=== PATIENT | female | born 1940 | race Caucasian/White ===

== ENCOUNTER 2017-06-28 10:08 | Inpatient (IN) | payer MEDICARE, MEDICAID ==
[2017-06-28 10:47] LABS: #Eosinphils 0.2 thou/uL (0.0-0.7); #Lymphocytes 0.8 thou/uL (1.20-3.40); #Monocytes 0.4 thou/uL (0.11-0.59); #Neutrophils 5.8 thou/uL (1.40-6.50); %Basophils 0.2 % (0.0-1.0); %Eosinophils 2.2 % (0.0-10.0); %Lymphocytes 11.6 % (21.0-51.0); %Monocytes 5.4 % (0.0-10.0); %Neutrophils 80.7 % (42.0-75.0); Hemoglobin 7.7 g/dL (12.0-16.0); Mean Corpuscular HGB CONC 28.7 g/dL (32.0-36.0); Mean Corpuscular Hemoglobin 20.8 pg (27.0-31.0); Mean Corpuscular Volume 72.4 fl (81.0-99.0); Mean Platelet Volume 7.5 fL (7.4-10.4); Platelet Count 206 thou/uL (130-400); RBC Distribution Width 18.9 % (11.5-14.5); Red Blood Cell (RBC) Count 3.72 mill/uL (4.20-5.40); White Blood Cell (WBC) Count 7.2 thou/uL (4.8-10.8)
[2017-06-28 10:48] LABS: Prothrombin Time 41.9 SEC (12.0-14.7)
[2017-06-28 10:49] LABS: PTT 56.7 SEC (22.9-36.1)
[2017-06-28 10:53] LABS: INR-International Normal Ratio 4.1
[2017-06-28 11:04] LABS: ALT (SGPT) 7 U/L (8-55); AST (SGOT) 11 U/L (5-34); Albumin 3.6 g/dL (3.4-4.8); Alkaline Phosphatase 69 U/L (40-150); Anion Gap 14 mmol/L (10-20); BUN (Urea Nitrogen) 13 mg/dL (9.8-20.1); Bilirubin, Total 0.5 mg/dL (0.2-1.2); CK (CPK) 30 U/L (29-168); Calc. Creatinine Clearance 0 mL/min (70-130); Carbon Dioxide 31 mmol/L (23-31); Chloride 100 mmol/L (98-107); Estimated GFR-MDRD 46; Globulin 2.5 g/dL (2.4-3.5); Glucose 152 mg/dL (83-110); Lipase 11 U/L (8-78); Potassium 4.2 mmol/L (3.5-5.1); Protein, Total 6.1 g/dL (6.0-8.3); Sodium 141 mmol/L (136-145)
[2017-06-28 11:07] LABS: Hypochromia MODERATE=16-30 cells (100X) (0-5/hpf); MDiff Complete? YES; Microcytosis MODERATE=15-30 cells (100X) (0-5/hpf); Ovalocytes MODERATE= 6-15 cells (100X) (0-1/hpf); PLT Morphology Comment Appears Adequate; Polychromasia MODERATE = 3-4 cells (100X) (0-2/hpf); Reflex for Review?? NO
[2017-06-28 11:09] LABS: CKMB 1.1 ng/mL (0-6.6); Troponin I 0.013 ng/mL (< 0.028)
--- NOTE | 2017-06-28 11:15 | RAD ---
PORTABLE CHEST ONE VIEW: Date: 06-28-17 Time: 11:02 a.m. History: Chest pain. FINDINGS/IMPRESSION: Comparison is made with exam of 03-09-17. Left sided pacemaker device remains in place. The heart size is enlarged. There is mild pulmonary vas cular congestion. No lobar consolidation, pneumothorax, saida pulmonary edema or large effusions are seen. POS: [facility]
[2017-06-28] MEDS ORDERED: Furosemide 40 MG/4 ML VIAL ONE (12:21)
[2017-06-28] MEDS ORDERED: Nitroglycerin 0.4 MG TAB (25 Tab Bottle) SL PRN (13:40)
[2017-06-28] MEDS ORDERED: Ondansetron ODT 4 MG TAB PO PRN (13:40)
[2017-06-28] MEDS ORDERED: hydrALAZINE 20 MG/ML VIAL SLOW IVP PRN (13:40)
[2017-06-28] MEDS ORDERED: Diabetic Tussin 200 MG/10 ML UDCUP PO PRN (13:40)
[2017-06-28] MEDS ORDERED: Loperamide HCl 2 MG CAP PO PRN (13:40)
[2017-06-28] MEDS ORDERED: Artificial Tears 18 DROP/0.9 ML EA EYE PRN (13:40)
[2017-06-28] MEDS ORDERED: Sodium Chloride 0.65% Nasal 44 ML BOT EA NARE PRN (13:40)
[2017-06-28] MEDS ORDERED: Mag-Al 1200 mg/1200 mg/30 ML UDCUP PO PRN (13:40)
[2017-06-28] MEDS ORDERED: Loratadine 10 MG TAB PO PRN (13:40)
[2017-06-28] MEDS ORDERED: Senokot 8.6 MG TAB PO PRN (13:40)
[2017-06-28] MEDS ORDERED: Chloraseptic Spray 180 ml Bottle PO PRN (13:40)
[2017-06-28] MEDS ORDERED: Ondansetron HCl/PF 4 MG/2 ML Vial IVP PRN (13:40)
[2017-06-28] MEDS ORDERED: Eucerin (Mineral Oil/Petrolatum,White) 30 gm Jar TOP PRN (13:40)
[2017-06-28] MEDS ORDERED: Milk Of Magnesia 30 ML UDCUP PO PRN (13:40)
[2017-06-28] MEDS ORDERED: Zolpidem Tartrate 5 MG TAB PO PRN (13:40)
[2017-06-28] MEDS ORDERED: clonazePAM 0.5 MG TAB PO PRN (13:40)
[2017-06-28 14:25] LABS: Troponin I 0.012 ng/mL (< 0.028)
--- NOTE | 2017-06-28 14:35 | HP ---
PRIMARY CARE PHYSICIAN: Rin Mccloud M.D. at [facility]. REASON FOR ADMISSION: Acute on chronic diastolic congestive heart failure exacerbation. HISTORY OF PRESENT ILLNESS: A 77-year-old female who lives at [facility]. She has under lying history of diastolic heart failure with EF 50%-55% based on echocardiography in 02/2017. The p atient also has moderate tricuspid regurgitation and moderate pulmonary hypertension. Patient is rodney Hull as an outpatient basis. Her last admission for CHF exacerbation was in 02/2017. T he patient reports that this time she had almost similar presentation and she was having chest pain a t the alf which was substernal without any radiation, without any association of nausea, vom iting, diaphoresis. For the last 2-3 weeks, she is experiencing dyspnea on exertion with orthopnea, PND, and increasing lower extremity edema. Patient denies any fever or chills, but she was having co ugh on lying down position. She was feeling more short of breath in lying down position. She also g ained some weight. With these symptoms, she was presented to the emergency room. Last night, she wa s having worse symptoms ever. She was not able to breathe along with her chest discomfort and that i s why patient was sent to the ER for further evaluation and treatment. Today in the emergency room, chest x-ray showed pulmonary vascular congestion. Her hemoglobin is 7.7 and her INR is 4.1. Her BNP is elevated to 316. In the emergency room, the patient was given Lasix 40 mg and aspirin 324 mg and patient is being admi tted to telemetry floor for acute on chronic diastolic congestive heart failure exacerbation as well as associated hypoxia and chest pain to rule out acute coronary syndrome. PAST MEDICAL HISTORY: Chronic kidney disease stage 3, coronary artery disease, history of pacemaker, COPD, paroxysmal atrial fibrillation, gastroesophageal reflux disease, chronic anticoagulation with warfarin, history of frequent urinary tract infection, chronic pain disorder, diabetes type 2, Alzhei justin's dementia, and history of breast cancer. PAST PSYCHIATRIC HISTORY: Anxiety, depression, and bipolar disorder. PAST SURGICAL HISTORY: Bilateral mastectomy, cholecystectomy, hysterectomy, bilateral total knee rep lacement, pacemaker placement, cardiac catheterization with stent placement in 2011. FAMILY HISTORY: Positive for congestive heart failure and COPD among several family members. No str garcia family history of premature coronary artery disease, stroke or cancer. SOCIAL HISTORY: Patient is a former smoker. She currently denies any tobacco, alcohol or illicit dr ug abuse. She lives at [facility]. REVIEW OF SYSTEMS: The following complete review of systems was negative, unless otherwise mentioned in the HPI or below: Constitutional: Weight loss or gain, ability to conduct usual activities. Sk in: Rash, itching. Eyes: Double vision, pain. ENT/Mouth: Nose bleeding, neck stiffness, pain, te nderness. Cardiovascular: Palpitations, dyspnea on exertion, orthopnea. Respiratory: Shortness of breath, wheezing, cough, hemoptysis, fever or night sweats. Gastrointestinal: Poor appetite, abdom inal pain, heartburn, nausea, vomiting, constipation, or diarrhea. Genitourinary: Urgency, frequenc y, dysuria, nocturia. Musculoskeletal: Pain, swelling. Neurologic/Psychiatric: Anxiety, depressio n. Allergy/Immunologic: Skin rash, bleeding tendency. Please see my HPI for pertinent positives and negatives. All other review of systems reviewed and ne gative except as mentioned in the HPI. ALLERGIES: Patient is allergic to NAPROXEN, KEFLEX and LEVAQUIN. The patient is also allergic to CO UMADIN. CURRENT HOME MEDICATIONS: Potassium chloride 20 mEq p.o. daily, oxybutynin chloride 5 mg p.o. daily, Namenda 10 mg twice daily, gabapentin 300 mg p.o. 3 times daily, Flonase nasal spray daily, Lasix 20 mg p.o. daily, risperidone 1 mg p.o. daily, clonazepam 0.5 mg p.o. daily, Zoloft 75 mg p.o. at [facility], aspirin 324 mg p.o. daily, Prilosec 20 mg p.o. daily, Xarelto 20 mg p.o. daily, multivitamin 1 ta blet p.o. daily, tramadol 50 mg q.6 hourly p.r.n., Estrace vaginal cream topical application as direc papo, Lortab 7.5 one tablet q.6 hourly p.r.n. EMERGENCY ROOM COURSE: Patient has received Lasix 40 mg IV one time dose. PHYSICAL EXAMINATION: VITAL SIGNS: On arrival, blood pressure 117/59, pulse 72, respiratory rate 23, temperature 99.1, sat uration 100% on 2 liters oxygen, weight 113.4 kilograms. GENERAL: Patient is currently alert, awake, appears chronically ill, in no obvious acute distress. HEENT: Normocephalic, atraumatic. Eyes: Pupils round, reactive to light. Extraocular muscles inta ct. ENT: Oropharynx within normal limits. Moist mucous membranes. No oral lesions. No pharyngeal eryt marcellus, no exudate. NECK: Supple, no JVD, no thyromegaly, no carotid bruit, no jugular venous distention. LUNGS: Bibasilar rales noted. Air entry reduced on both sides. No wheezing, no rhonchi. No access ory muscles of respiration in use. CARDIAC: S1, S2 regular. No murmur, no gallop, no rub. ABDOMEN: Soft, bowel sounds present, nontender, nondistended. No organomegaly, no mass, no suprapub ic tenderness. BACK: Unremarkable, no CVA tenderness. EXTREMITIES: Upper extremity passive movement of all joints are normal. Lower extremity, bilateral lower extremity pitting edema noted. Good distal pulsation. SKIN: No skin rash. HEMATOLOGICAL SYSTEM: No lymphadenopathy. PSYCHIATRIC: Normal affect. SIGNIFICANT LABORATORY DATA: EKG showing pacemaker rhythm, nonspecific ST-T changes. Chest x-ray based on my review, pacemaker in place, cardiomegaly, pulmonary vascular congestion. CBC: WBC 7.2, hemoglobin 7.7, MCV 72.4, platelets 206. INR 4.1. BMP: Sodium 141, potassium 4.2, c hloride 100, carbon dioxide 31, anion gap 14, BUN 13, creatinine 1.14, glucose 152, calcium 9.0. Lac tic acid 2.2. LFT: AST 11, AST 7, alkaline phosphatase 69, albumin 3.6, lipase 11. CK 30, CK-MB 1. 1, troponin I 0.013, BNP 316. ASSESSMENT AND PLAN: 1. Acute on chronic diastolic congestive heart failure exacerbation. This patient has increasing dy spnea, orthopnea, paroxysmal nocturnal dyspnea, leg swelling, elevated BNP and pulmonary vascular con gestion on chest x-ray, all consistent with congestive heart failure exacerbation. Based on most rec ent echocardiography on 02/2017, patient has normal ejection fraction. At this point, the patient wi ll be admitted to telemetry floor and she will be treated with IV Lasix. We will monitor daily weigh t, input and output chart, and replace electrolytes accordingly. We will monitor renal function as w ell. 2. Increasing dyspnea. We will also check influenza screen to rule out influenza. We will rule out cardiac etiology with serial cardiac enzymes. 3. Chest pain. We will do serial cardiac enzymes to rule out acute coronary syndrome. Nitroglyceri n on p.r.n. basis. 4. Acute hypoxic respiratory failure. Patient was requiring oxygen in the emergency room and she wa s hypoxic initially. We will monitor her oxygen saturation closely and we are hoping that with Lasix therapy, the patient will not need any oxygen therapy upon discharge. 5. Coagulopathy due to Xarelto. Because of her INR is 4.1, we will hold on Xarelto therapy. 6. Microcytic anemia. We will check ferritin and will repeat CBC tomorrow. We will do anemia jeanine p and we will also start ferrous sulfate 325 mg p.o. b.i.d. If ferritin is significantly low, then b efore discharge we will also consider giving iron infusion. We will check stool for guaiac to rule o ut any occult bleeding. 7. Alzheimer dementia. We will continue Namenda 10 mg twice daily. 8. Anxiety and depression. We will continue Zoloft 75 mg p.o. at bedtime and risperidone 1 mg p.o. daily. 9. Chronic anticoagulation with Xarelto. We will hold on Xarelto therapy because of high INR. We w ill repeat INR tomorrow. 10. Peripheral neuropathy. We will continue gabapentin 300 mg three times daily. 11. Hypertension. Currently, patient's blood pressure is well controlled. We are continuing with L asix and will titrate blood pressure medication as tolerated. 12. Dyslipidemia. We will continue Zetia 10 mg p.o. daily and Lipitor 20 mg p.o. at bedtime. 13. Chronic obstructive pulmonary disease. We will continue DuoNeb therapy every 6 hourly. 14. Bipolar disorder. We will continue Depakote ER 250 mg p.o. daily. 15. Deep venous thrombosis prophylaxis. SCD boots. 16. Gastrointestinal prophylaxis, Protonix 40 mg p.o. daily. 17. CODE STATUS: The patient is [id number]. The patient also has [id number] writte n at alf. I spoke with the patient and confirmed her [id number] status [facility] as well. The patient does not want even trial of cardiopulmonary resuscitation or intubation i n case of cardiopulmonary arrest. 18. Paroxysmal atrial fibrillation. We will monitor on telemetry floor, patient is on chronic antic oagulation therapy. 19. History of coronary artery disease. Continue aspirin 81 mg p.o. daily along with other medicati on as above. 20. The patient also has stage II pressure ulcer on skin examination and that is why we will provide skin care to prevent getting worse. Stage 2 pressure ulcer is present on admission. Disposition plan based on clinical course. We are expecting patient's stay in hospital more than 2 m idnights. Plan of care discussed with the patient and family member at bedside in the emergency room.
[2017-06-28 17:24] LABS: Troponin I 0.018 ng/mL (< 0.028)
[2017-06-28] MEDS: Gabapentin 300 MG CAP PO SCH ×2 (18:07→21:10)
[2017-06-28] MEDS: Furosemide 40 MG/4 ML VIAL SLOW IVP SCH (18:07)
[2017-06-28] MEDS: Acetaminophen 325 MG TAB PO PRN (19:37)
[2017-06-28] MEDS: Atorvastatin Calcium 20 MG TAB PO SCH (21:10)
[2017-06-29 05:50] LABS: INR-International Normal Ratio 2.6; PTT 47.1 SEC (22.9-36.1); Prothrombin Time 28.7 SEC (12.0-14.7)
[2017-06-29] MEDS: Furosemide 40 MG/4 ML VIAL SLOW IVP SCH ×2 (06:08→14:47)
[2017-06-29 06:13] LABS: ALT (SGPT) Less than 7 U/L (8-55); AST (SGOT) 10 U/L (5-34); Albumin 3.4 g/dL (3.4-4.8); Alkaline Phosphatase 70 U/L (40-150); Anion Gap 15 mmol/L (10-20); BUN (Urea Nitrogen) 14 mg/dL (9.8-20.1); Bilirubin, Total 0.5 mg/dL (0.2-1.2); Calc. Creatinine Clearance 60 mL/min (70-130); Calcium 9.2 mg/dL (7.8-10.44); Carbon Dioxide 29 mmol/L (23-31); Chloride 101 mmol/L (98-107); Estimated GFR-MDRD 47; Globulin 2.4 g/dL (2.4-3.5); Glucose 119 mg/dL (83-110); Magnesium 2.8 mg/dL (1.6-2.6); Protein, Total 5.8 g/dL (6.0-8.3); Sodium 141 mmol/L (136-145); Uric Acid 10.5 mg/dL (2.6-6.0)
[2017-06-29 07:18] LABS: #Basophils 0.1 thou/uL (0.0-0.2); #Eosinphils 0.1 thou/uL (0.0-0.7); #Lymphocytes 0.8 thou/uL (1.20-3.40); #Monocytes 0.4 thou/uL (0.11-0.59); #Neutrophils 4.7 thou/uL (1.40-6.50); %Basophils 1.2 % (0.0-1.0); %Eosinophils 2.4 % (0.0-10.0); %Lymphocytes 12.6 % (21.0-51.0); %Monocytes 7.3 % (0.0-10.0); %Neutrophils 76.5 % (42.0-75.0); Hemoglobin 7.4 g/dL (12.0-16.0); Mean Corpuscular HGB CONC 29.2 g/dL (32.0-36.0); Mean Corpuscular Hemoglobin 21.1 pg (27.0-31.0); Mean Corpuscular Volume 72.1 fl (81.0-99.0); Mean Platelet Volume 6.8 fL (7.4-10.4); Platelet Count 177 thou/uL (130-400); RBC Distribution Width 18.9 % (11.5-14.5); Red Blood Cell (RBC) Count 3.49 mill/uL (4.20-5.40); White Blood Cell (WBC) Count 6.1 thou/uL (4.8-10.8)
[2017-06-29 08:14] LABS: Iron 17 ug/dL (50-170); Iron Binding Capacity, Total 350 mcg/dL (265-497)
[2017-06-29 08:37] VITALS: BMI 35.3
[2017-06-29] MEDS: Ezetimibe 10 MG TAB PO SCH (09:15)
[2017-06-29] MEDS: risperiDONE 1 MG TAB PO SCH (09:16)
[2017-06-29] MEDS: Multivitamin W/ Minerals 1 TAB PO SCH (09:16)
[2017-06-29] MEDS: Gabapentin 300 MG CAP PO SCH ×4 (09:16→20:43)
[2017-06-29] MEDS: Oxybutynin ER 5 MG TAB PO SCH (09:16)
[2017-06-29] MEDS: HYDROcodone/Acetaminophen 5/325 mg Tablet PO PRN ×2 (09:17→13:21)
--- NOTE | 2017-06-29 09:59 | PDOC.PN ---
- Subjective Encounter Start Date: 06/29/17 Encounter Start Time: 07:10 -: old records requested/rev Patient seen and examined. No new complaints. No overnight events - Objective Resuscitation Status: Resuscitation Status DNR:Do Not Resuscitate MAR Reviewed: Yes Vital Signs & Weight: Vital Signs (12 hours) Temp Pulse Resp BP Pulse Ox 06/29/17 08:15 98.1 F 76 20 131/62 94 L 06/29/17 06:22 93 L 06/29/17 06:21 108 H 20 93 L 06/29/17 04:00 98.3 F 73 20 145/66 H 93 L 06/29/17 00:42 77 16 99 Weight Admit Weight 193 lb 14.4 oz Weight 193 lb 5 oz I&O: 06/28/17 06/29/17 06/30/17 06:59 06:59 06:59 Intake Total 1440 Balance 1440 Result Diagrams: 06/29/17 04:15 06/29/17 04:15 EKG Reviewed by me: Yes (nsr) Phys Exam - Physical Examination Constitutional: NAD HEENT: PERRLA, moist MMs, sclera anicteric Neck: no JVD, supple Respiratory: no wheezing, no rhonchi basal rales Cardiovascular: RRR, no significant murmur, no rub Gastrointestinal: soft, non-tender, no distention, positive bowel sounds Musculoskeletal: pulses present, edema present Neurological: non-focal, normal sensation Lymphatic: no nodes Psychiatric: normal affect, A&O x 3 Skin: no rash, normal turgor Dx/Plan (1) Acute on chronic diastolic (congestive) heart failure Code(s): I50.33 - ACUTE ON CHRONIC DIASTOLIC (CONGESTIVE) HEART FAILURE Status : Acute (2) Acute respiratory failure with hypoxia Code(s): J96.01 - ACUTE RESPIRATORY FAILURE WITH HYPOXIA Status: Acute (3) Chest pain Code(s): R07.9 - CHEST PAIN, UNSPECIFIED Status: Acute (4) Coagulopathy Status: Acute (5) Alzheimer's dementia Code(s): G30.9 - ALZHEIMER'S DISEASE, UNSPECIFIED Status: Chronic (6) Anxiety and depression Code(s): F41.8 - OTHER SPECIFIED ANXIETY DISORDERS Status: Chronic (7) Bipolar disorder Code(s): F31.9 - BIPOLAR DISORDER, UNSPECIFIED Status: Chronic (8) CAD (coronary artery disease) Code(s): I25.10 - ATHSCL HEART DISEASE OF [place] CORONARY ARTERY W/O ANG PCTRS Status: Chronic (9) CKD (chronic kidney disease) stage 3, GFR 30-59 ml/min Code(s): N18.3 - CHRONIC KIDNEY DISEASE, STAGE 3 (MODERATE) Status: Chronic (10) COPD (chronic obstructive pulmonary disease) Status: Chronic (11) Chronic pain syndrome Code(s): G89.4 - CHRONIC PAIN SYNDROME Status: Chronic (12) HTN (hypertension) Code(s): I10 - ESSENTIAL (PRIMARY) HYPERTENSION Status: Chronic (13) Microcytic anemia Code(s): D50.9 - IRON DEFICIENCY ANEMIA, UNSPECIFIED Status: Chronic (14) Obesity (BMI 30-39.9) Code(s): E66.9 - OBESITY, UNSPECIFIED Status: Chronic (15) Paroxysmal atrial fibrillation Code(s): I48.0 - PAROXYSMAL ATRIAL FIBRILLATION Status: Chronic (16) Peripheral neuropathy Code(s): G62.9 - POLYNEUROPATHY, UNSPECIFIED Status: Chronic (17) Chronic respiratory failure Code(s): J96.10 - CHRONIC RESPIRATORY FAILURE, UNSP W HYPOXIA OR HYPERCAPNIA Status: Chronic - Plan cont current plan of care * continue diuresis * medication reviewed as below * symptomatic treatment * daily monitor labs and weight * will need 2 more day in hospital. Review of Systems - Review of Systems Constitutional: negative: fever, chills, sweats, weakness, malaise, other ENT: negative: Ear Pain, Ear Discharge, Nose Pain, Nose Discharge, Nose Congestion, Mouth Pain, Mouth Swelling, Throat Pain, Throat Swelling, Other Respiratory: SOB with Excertion. negative: Cough, Dry, Shortness of Breath, Hemoptysis, Pleuritic Pain, Sputum, Wheezing Cardiovascular: orthopnea, edema Gastrointestinal: negative: Nausea, Vomiting, Abdominal Pain, Diarrhea, Constipation, Melena, Hematochezia, Other Genitourinary: negative: Dysuria, Frequency, Incontinence, Hematuria, Retention , Other Musculoskeletal: negative: Neck Pain, Shoulder Pain, Arm Pain, Back Pain, Hand Pain, Leg Pain, Foot Pain, Other Skin: negative: Rash, Lesions, Joe, Bruising, Other - Medications/Allergies Allergies/Adverse Reactions: Allergies Allergy/AdvReac Type Severity Reaction Status Date / Time levofloxacin [From Levaquin] Allergy Verified 06/28/17 19:48 naproxen Allergy Verified 06/28/17 19:48 NSAIDS (Non-Steroidal Allergy Verified 06/28/17 19:48 Anti-Inflamma warfarin sodium Allergy Verified 06/28/17 19:48 [From Coumadin] Medications: Current Medications Acetaminophen (Tylenol) 650 mg PO Q4H PRN PRN Reason: Headache/Fever or Pain Last Admin: 06/28/17 19:37 Dose: 650 mg Hydrocodone Bitart/Acetaminophen (Shields 5/325) 1 tab PO Q4H PRN PRN Reason: Moderate Pain (4-6) Last Admin: 06/29/17 09:17 Dose: 1 tab Al Hydroxide/Mg Hydroxide (Maalox) 30 ml PO Q6H PRN PRN Reason: Heartburn or Indigestion Albuterol/Ipratropium (Duoneb) 3 ml NEB [id number] [facility] Last Admin: 06/29/17 06:21 Dose: 3 ml Artificial Tears (Tears Naturale) 0 drop EA EYE PRN PRN PRN Reason: Dry Eyes Aspirin (Aspirin Chewable) 81 mg PO DAILY [facility] Last Admin: 06/29/17 09:15 Dose: 81 mg Atorvastatin Calcium (Lipitor) 20 mg PO HS [facility] Last Admin: 06/28/17 21:10 Dose: 20 mg Clonazepam (Klonopin) 0.5 mg PO BIDPRN PRN PRN Reason: Anxiety/Agitation Divalproex Sodium (Depakote Er) 250 mg PO DAILY [facility] Last Admin: 06/29/17 09:15 Dose: 250 mg Ezetimibe (Zetia) 10 mg PO DAILY [facility] Last Admin: 06/29/17 09:15 Dose: 10 mg Fluticasone Propionate (Flonase Nasal Adams) 1 gm NASAL DAILY [facility] Furosemide (Lasix) 40 mg SLOW IVP 0600,1400 [facility] Last Admin: 06/29/17 06:08 Dose: 40 mg Gabapentin (Neurontin) 300 mg PO TID [facility] Last Admin: 06/29/17 09:16 Dose: 300 mg Guaifenesin (Robitussin Sf) 200 mg PO Q4H PRN PRN Reason: Cough Hydralazine HCl (Apresoline) 10 mg SLOW IVP Q4H PRN PRN Reason: Systolic BP > 180 Iron/Minerals/Multivitamins (Theragran M) 1 tab PO DAILY [facility] Last Admin: 06/29/17 09:16 Dose: 1 tab Loperamide HCl (Imodium) 2 mg PO PRN PRN PRN Reason: Diarrhea/Loose Stools Loratadine (Claritin) 10 mg PO DAILYPRN PRN PRN Reason: Sinus Symptoms Magnesium Hydroxide (Milk Of Magnesium) 30 ml PO DAILYPRN PRN PRN Reason: Constipation Memantine (Namenda) 10 mg PO BID [facility] Last Admin: 06/29/17 09:16 Dose: 10 mg Mineral Oil/White Petrolatum (Eucerin Cream) 0 gm TOP BIDPRN PRN PRN Reason: Dry Skin Nitroglycerin (Nitrostat) 0.4 mg SL Q5MIN PRN PRN Reason: Chest Pain Ondansetron HCl (Zofran Odt) 4 mg PO Q6H PRN PRN Reason: Nausea/Vomiting Ondansetron HCl (Zofran) 4 mg IVP Q6H PRN PRN Reason: Nausea/Vomiting Oxybutynin Chloride (Ditropan Xl) 5 mg PO DAILY [facility] Last Admin: 06/29/17 09:16 Dose: 5 mg Pantoprazole Sodium (Protonix) 40 mg PO DAILY [facility] Last Admin: 06/29/17 09:16 Dose: 40 mg Phenol (Chloraseptic Adams 180 Ml Bot) 0 ml PO PRN PRN PRN Reason: Sore Throat Risperidone (Risperidone) 1 mg PO DAILY [facility] Last Admin: 06/29/17 09:16 Dose: 1 mg Senna (Senokot) 2 tab PO HSPRN PRN PRN Reason: Constipation Sertraline HCl (Zoloft) 75 mg PO DAILY [facility] Last Admin: 06/29/17 09:17 Dose: 75 mg Sodium Chloride ([place] Nasal Adams 0.65%) 0 ml EA NARE QIDPRN PRN PRN Reason: Nasal Congestion Zolpidem Tartrate (Ambien) 5 mg PO HSPRN PRN PRN Reason: Insomnia
[2017-06-29] MEDS: Fluticasone Propionate Nasal Spray 16 gm Bottle NASAL SCH (13:21)
[2017-06-29] MEDS: Acetaminophen 325 MG TAB PO PRN (14:47)
[2017-06-29] MEDS: Atorvastatin Calcium 20 MG TAB PO SCH (20:43)
[2017-06-29 21:23] LABS: Actual Bicarbonate (HCO3a) 34.2 mEq/L (22-26); Base Excess (BEa) 8.7 mEq/L (0 (+/-) 2.5); CO2 Tension 54.3 mmHg (35.0-45.0); Calcium, Ionized 1.1 mmol/L (1.12-1.30); Hematocrit-ABG 25.4 % (36.0-47.0); O2 Tension (PaO2) 67.7 mmHg (80.0-100.0); pH, Arterial 7.42 (7.35-7.45)
[2017-06-29 21:24] LABS: ALV-art Gradient 51.105 (0-20); Puncture Site LRA
[2017-06-30] MEDS: Acetaminophen 325 MG TAB PO PRN ×4 (05:26→21:06)
[2017-06-30] MEDS: Furosemide 40 MG/4 ML VIAL SLOW IVP SCH ×2 (05:26→14:22)
[2017-06-30] MEDS: Fluticasone Propionate Nasal Spray 16 gm Bottle NASAL SCH (09:31)
[2017-06-30] MEDS: Ezetimibe 10 MG TAB PO SCH (09:31)
[2017-06-30] MEDS: Gabapentin 300 MG CAP PO SCH ×3 (09:31→21:06)
[2017-06-30] MEDS: risperiDONE 1 MG TAB PO SCH (09:32)
[2017-06-30] MEDS: Multivitamin W/ Minerals 1 TAB PO SCH (09:32)
[2017-06-30] MEDS: Oxybutynin ER 5 MG TAB PO SCH (09:58)
--- NOTE | 2017-06-30 10:07 | PDOC.PN ---
- Subjective Encounter Start Date: 06/30/17 Encounter Start Time: 07:10 Patient seen and examined. No new complaints. No overnight events - Objective Resuscitation Status: Resuscitation Status DNR:Do Not Resuscitate MAR Reviewed: Yes Vital Signs & Weight: Vital Signs (12 hours) Temp Pulse Resp BP Pulse Ox 06/30/17 09:29 99.8 F H 91 20 140/69 93 L 06/30/17 07:18 93 L 06/30/17 07:14 101 H 20 93 L 06/30/17 03:04 98.3 F 75 22 H 138/67 95 06/30/17 01:29 128/58 L 06/29/17 23:56 82 16 100 Weight Admit Weight 193 lb 14.4 oz Weight 189 lb 3.2 oz I&O: 06/29/17 06/30/17 07/01/17 06:59 06:59 06:59 Intake Total 1440 840 Balance 1440 840 Result Diagrams: 06/29/17 04:15 06/29/17 04:15 EKG Reviewed by me: Yes Phys Exam - Physical Examination Constitutional: NAD HEENT: PERRLA, moist MMs, sclera anicteric Neck: no JVD, supple Respiratory: no wheezing, no rales, no rhonchi Cardiovascular: RRR, no significant murmur, no rub Gastrointestinal: soft, non-tender, no distention, positive bowel sounds Musculoskeletal: no edema, pulses present Neurological: non-focal Lymphatic: no nodes Psychiatric: normal affect Skin: no rash, normal turgor Dx/Plan (1) Acute on chronic diastolic (congestive) heart failure Code(s): I50.33 - ACUTE ON CHRONIC DIASTOLIC (CONGESTIVE) HEART FAILURE Status : Acute (2) Acute respiratory failure with hypoxia Code(s): J96.01 - ACUTE RESPIRATORY FAILURE WITH HYPOXIA Status: Acute (3) Chest pain Code(s): R07.9 - CHEST PAIN, UNSPECIFIED Status: Acute (4) Coagulopathy Status: Acute (5) Alzheimer's dementia Code(s): G30.9 - ALZHEIMER'S DISEASE, UNSPECIFIED Status: Chronic (6) Anxiety and depression Code(s): F41.8 - OTHER SPECIFIED ANXIETY DISORDERS Status: Chronic (7) Bipolar disorder Code(s): F31.9 - BIPOLAR DISORDER, UNSPECIFIED Status: Chronic (8) CAD (coronary artery disease) Code(s): I25.10 - ATHSCL HEART DISEASE OF [place] CORONARY ARTERY W/O ANG PCTRS Status: Chronic (9) CKD (chronic kidney disease) stage 3, GFR 30-59 ml/min Code(s): N18.3 - CHRONIC KIDNEY DISEASE, STAGE 3 (MODERATE) Status: Chronic (10) COPD (chronic obstructive pulmonary disease) Status: Chronic (11) Chronic pain syndrome Code(s): G89.4 - CHRONIC PAIN SYNDROME Status: Chronic (12) HTN (hypertension) Code(s): I10 - ESSENTIAL (PRIMARY) HYPERTENSION Status: Chronic (13) Microcytic anemia Code(s): D50.9 - IRON DEFICIENCY ANEMIA, UNSPECIFIED Status: Chronic (14) Obesity (BMI 30-39.9) Code(s): E66.9 - OBESITY, UNSPECIFIED Status: Chronic (15) Paroxysmal atrial fibrillation Code(s): I48.0 - PAROXYSMAL ATRIAL FIBRILLATION Status: Chronic (16) Peripheral neuropathy Code(s): G62.9 - POLYNEUROPATHY, UNSPECIFIED Status: Chronic (17) Chronic respiratory failure Code(s): J96.10 - CHRONIC RESPIRATORY FAILURE, UNSP W HYPOXIA OR HYPERCAPNIA Status: Chronic - Plan cont current plan of care * positive blood culture is contaminant * continue diuresis * medication reviewed as below * symptomatic treatment. Review of Systems - Review of Systems ENT: negative: Ear Pain, Ear Discharge, Nose Pain, Nose Discharge, Nose Congestion, Mouth Pain, Mouth Swelling, Throat Pain, Throat Swelling, Other Respiratory: negative: Cough, Dry, Shortness of Breath, Hemoptysis, SOB with Excertion, Pleuritic Pain, Sputum, Wheezing Cardiovascular: negative: chest pain, palpitations, orthopnea, paroxysmal nocturnal dyspnea, edema, light headedness, other Gastrointestinal: negative: Nausea, Vomiting, Abdominal Pain, Diarrhea, Constipation, Melena, Hematochezia, Other Genitourinary: negative: Dysuria, Frequency, Incontinence, Hematuria, Retention , Other Musculoskeletal: negative: Neck Pain, Shoulder Pain, Arm Pain, Back Pain, Hand Pain, Leg Pain, Foot Pain, Other - Medications/Allergies Allergies/Adverse Reactions: Allergies Allergy/AdvReac Type Severity Reaction Status Date / Time levofloxacin [From Levaquin] Allergy Verified 06/28/17 19:48 naproxen Allergy Verified 06/28/17 19:48 NSAIDS (Non-Steroidal Allergy Verified 06/28/17 19:48 Anti-Inflamma warfarin sodium Allergy Verified 06/28/17 19:48 [From Coumadin] Medications: Current Medications Acetaminophen (Tylenol) 650 mg PO Q4H PRN PRN Reason: Headache/Fever or Pain Last Admin: 06/30/17 09:30 Dose: 650 mg Hydrocodone Bitart/Acetaminophen ([place] 5/325) 1 tab PO Q4H PRN PRN Reason: Moderate Pain (4-6) Last Admin: 06/29/17 13:21 Dose: 1 tab Al Hydroxide/Mg Hydroxide (Maalox) 30 ml PO Q6H PRN PRN Reason: Heartburn or Indigestion Albuterol/Ipratropium (Duoneb) 3 ml NEB [id number] [facility] Last Admin: 06/30/17 07:14 Dose: 3 ml Artificial Tears (Tears Naturale) 0 drop EA EYE PRN PRN PRN Reason: Dry Eyes Aspirin (Aspirin Chewable) 81 mg PO DAILY [facility] Last Admin: 06/30/17 09:31 Dose: 81 mg Atorvastatin Calcium (Lipitor) 20 mg PO HS [facility] Last Admin: 06/29/17 20:43 Dose: 20 mg Clonazepam (Klonopin) 0.5 mg PO BIDPRN PRN PRN Reason: Anxiety/Agitation Divalproex Sodium (Depakote Er) 250 mg PO DAILY [facility] Last Admin: 06/30/17 09:58 Dose: 250 mg Ezetimibe (Zetia) 10 mg PO DAILY [facility] Last Admin: 06/30/17 09:31 Dose: 10 mg Fluticasone Propionate (Flonase Nasal [place]) 1 gm NASAL DAILY [facility] Last Admin: 06/30/17 09:31 Dose: 1 spr Furosemide (Lasix) 40 mg SLOW IVP 0600,1400 [facility] Last Admin: 06/30/17 05:26 Dose: 40 mg Gabapentin (Neurontin) 300 mg PO TID [facility] Last Admin: 06/30/17 09:31 Dose: 300 mg Guaifenesin (Robitussin Sf) 200 mg PO Q4H PRN PRN Reason: Cough Hydralazine HCl (Apresoline) 10 mg SLOW IVP Q4H PRN PRN Reason: Systolic BP > 180 Iron/Minerals/Multivitamins (Theragran M) 1 tab PO DAILY [facility] Last Admin: 06/30/17 09:32 Dose: 1 tab Loperamide HCl (Imodium) 2 mg PO PRN PRN PRN Reason: Diarrhea/Loose Stools Loratadine (Claritin) 10 mg PO DAILYPRN PRN PRN Reason: Sinus Symptoms Magnesium Hydroxide (Milk Of Magnesium) 30 ml PO DAILYPRN PRN PRN Reason: Constipation Memantine (Namenda) 10 mg PO BID [facility] Last Admin: 06/30/17 09:32 Dose: 10 mg Mineral Oil/White Petrolatum (Eucerin Cream) 0 gm TOP BIDPRN PRN PRN Reason: Dry Skin Nitroglycerin (Nitrostat) 0.4 mg SL Q5MIN PRN PRN Reason: Chest Pain Ondansetron HCl (Zofran Odt) 4 mg PO Q6H PRN PRN Reason: Nausea/Vomiting Ondansetron HCl (Zofran) 4 mg IVP Q6H PRN PRN Reason: Nausea/Vomiting Oxybutynin Chloride (Ditropan Xl) 5 mg PO DAILY [facility] Last Admin: 06/30/17 09:58 Dose: 5 mg Pantoprazole Sodium (Protonix) 40 mg PO DAILY [facility] Last Admin: 06/30/17 09:32 Dose: 40 mg Phenol (Chloraseptic [place] 180 Ml Bot) 0 ml PO PRN PRN PRN Reason: Sore Throat Risperidone (Risperidone) 1 mg PO DAILY [facility] Last Admin: 06/30/17 09:32 Dose: 1 mg Senna (Senokot) 2 tab PO HSPRN PRN PRN Reason: Constipation Sertraline HCl (Zoloft) 75 mg PO DAILY [facility] Last Admin: 06/30/17 09:32 Dose: 75 mg Sodium Chloride ([place] Nasal [place] 0.65%) 0 ml EA NARE QIDPRN PRN PRN Reason: Nasal Congestion Zolpidem Tartrate (Ambien) 5 mg PO HSPRN PRN PRN Reason: Insomnia
[2017-06-30] MEDS: Atorvastatin Calcium 20 MG TAB PO SCH (21:06)
[2017-07-01] MEDS: Furosemide 40 MG/4 ML VIAL SLOW IVP SCH ×2 (06:27→14:28)
[2017-07-01] MEDS: Gabapentin 300 MG CAP PO SCH ×3 (08:41→19:28)
[2017-07-01] MEDS: Acetaminophen 325 MG TAB PO PRN ×4 (08:41→23:29)
[2017-07-01] MEDS: Ezetimibe 10 MG TAB PO SCH (08:41)
[2017-07-01] MEDS: risperiDONE 1 MG TAB PO SCH (08:42)
[2017-07-01] MEDS: Multivitamin W/ Minerals 1 TAB PO SCH (08:42)
[2017-07-01] MEDS: Fluticasone Propionate Nasal Spray 16 gm Bottle NASAL SCH (10:00)
[2017-07-01] MEDS: Rivaroxaban 10 MG TAB PO SCH (10:00)
[2017-07-01] MEDS: Oxybutynin ER 5 MG TAB PO SCH (10:02)
--- NOTE | 2017-07-01 10:31 | PDOC.PN ---
- Subjective Encounter Start Date: 07/01/17 Encounter Start Time: 09:00 Patient seen and examined. SOB on exertion. No overnight events - Objective Resuscitation Status: Resuscitation Status DNR:Do Not Resuscitate MAR Reviewed: Yes Vital Signs & Weight: Vital Signs (12 hours) Temp Pulse Resp BP Pulse Ox 07/01/17 08:31 99.3 F 92 18 170/72 H 95 07/01/17 08:13 98 07/01/17 08:11 84 20 98 07/01/17 04:00 98.1 F 69 20 137/65 96 07/01/17 00:04 81 18 98 07/01/17 00:00 98.5 F 89 20 147/65 H 96 Weight Admit Weight 193 lb 14.4 oz Weight 190 lb 3.2 oz I&O: 06/30/17 07/01/17 07/02/17 06:59 06:59 06:59 Intake Total 840 1320 Balance 840 1320 Result Diagrams: 06/29/17 04:15 06/29/17 04:15 EKG Reviewed by me: Yes (Tele paced) Phys Exam - Physical Examination Constitutional: NAD Respiratory: no wheezing, no rhonchi Cardiovascular: RRR, no rub Gastrointestinal: soft, non-tender, positive bowel sounds Musculoskeletal: edema present Neurological: moves all 4 limbs Dx/Plan - Plan IMPRESSION: 1. Acute hypoxic respiratory failure due to acute on Chronic diastolic heart failure 2. CAD s/p stents 3. Chronic Afib - on anticoag 4. Anxiety/Depression 5. SSS s/p pacemaker 6. Obesity BMI 34.8/CKD 3/Dementia/Chronic Anemia PLAN: * Resume Xarelto * Cont diuresis with 1500 fluid restriction * Only lost 3 lbs so far * Cont to monitor * [place] for accurate I/O * Cont to monitor * AM labs * Restart Cardizem at low dose (Pt takes 120 mg daily) * DC Risperidone/Zoloft/Clonazepam (Not in home med list) Review of Systems - Review of Systems Cardiovascular: edema. negative: chest pain, palpitations, orthopnea, paroxysmal nocturnal dyspnea, light headedness Gastrointestinal: negative: Nausea, Vomiting, Abdominal Pain, Diarrhea, Constipation, Melena, Hematochezia - Medications/Allergies Allergies/Adverse Reactions: Allergies Allergy/AdvReac Type Severity Reaction Status Date / Time levofloxacin [From Levaquin] Allergy Verified 06/28/17 19:48 naproxen Allergy Verified 06/28/17 19:48 NSAIDS (Non-Steroidal Allergy Verified 06/28/17 19:48 Anti-Inflamma warfarin sodium Allergy Verified 06/28/17 19:48 [From Coumadin] Medications: Current Medications Acetaminophen (Tylenol) 650 mg PO Q4H PRN PRN Reason: Headache/Fever or Pain Last Admin: 07/01/17 08:41 Dose: 650 mg Hydrocodone Bitart/Acetaminophen ([place] 5/325) 1 tab PO Q4H PRN PRN Reason: Moderate Pain (4-6) Last Admin: 06/29/17 13:21 Dose: 1 tab Al Hydroxide/Mg Hydroxide (Maalox) 30 ml PO Q6H PRN PRN Reason: Heartburn or Indigestion Albuterol/Ipratropium (Duoneb) 3 ml NEB [id number] [facility] Last Admin: 07/01/17 08:11 Dose: 3 ml Artificial Tears (Tears Naturale) 0 drop EA EYE PRN PRN PRN Reason: Dry Eyes Aspirin (Aspirin Chewable) 81 mg PO DAILY [facility] Last Admin: 07/01/17 08:40 Dose: 81 mg Atorvastatin Calcium (Lipitor) 20 mg PO HS [facility] Last Admin: 06/30/17 21:06 Dose: 20 mg Clonazepam (Klonopin) 0.5 mg PO BIDPRN PRN PRN Reason: Anxiety/Agitation Divalproex Sodium (Depakote Er) 250 mg PO DAILY [facility] Last Admin: 07/01/17 10:01 Dose: 250 mg Ezetimibe (Zetia) 10 mg PO DAILY [facility] Last Admin: 07/01/17 08:41 Dose: 10 mg Fluticasone Propionate (Flonase Nasal [place]) 1 gm NASAL DAILY [facility] Last Admin: 07/01/17 10:00 Dose: Not Given Furosemide (Lasix) 40 mg SLOW IVP 0600,1400 [facility] Last Admin: 07/01/17 06:27 Dose: 40 mg Gabapentin (Neurontin) 300 mg PO TID [facility] Last Admin: 07/01/17 08:41 Dose: 300 mg Guaifenesin (Robitussin Sf) 200 mg PO Q4H PRN PRN Reason: Cough Hydralazine HCl (Apresoline) 10 mg SLOW IVP Q4H PRN PRN Reason: Systolic BP > 180 Iron/Minerals/Multivitamins (Theragran M) 1 tab PO DAILY [facility] Last Admin: 07/01/17 08:42 Dose: 1 tab Loperamide HCl (Imodium) 2 mg PO PRN PRN PRN Reason: Diarrhea/Loose Stools Loratadine (Claritin) 10 mg PO DAILYPRN PRN PRN Reason: Sinus Symptoms Magnesium Hydroxide (Milk Of Magnesium) 30 ml PO DAILYPRN PRN PRN Reason: Constipation Memantine (Namenda) 10 mg PO BID [facility] Last Admin: 07/01/17 08:41 Dose: 10 mg Mineral Oil/White Petrolatum (Eucerin Cream) 0 gm TOP BIDPRN PRN PRN Reason: Dry Skin Nitroglycerin (Nitrostat) 0.4 mg SL Q5MIN PRN PRN Reason: Chest Pain Nystatin (Mycostatin Powder) 0 gm TOP BID [facility] Ondansetron HCl (Zofran Odt) 4 mg PO Q6H PRN PRN Reason: Nausea/Vomiting Ondansetron HCl (Zofran) 4 mg IVP Q6H PRN PRN Reason: Nausea/Vomiting Oxybutynin Chloride (Ditropan Xl) 5 mg PO DAILY [facility] Last Admin: 07/01/17 10:02 Dose: 5 mg Pantoprazole Sodium (Protonix) 40 mg PO DAILY [facility] Last Admin: 07/01/17 08:42 Dose: 40 mg Phenol (Chloraseptic [place] 180 Ml Bot) 0 ml PO PRN PRN PRN Reason: Sore Throat Risperidone (Risperidone) 1 mg PO DAILY [facility] Last Admin: 07/01/17 08:42 Dose: 1 mg Rivaroxaban (Xarelto) 20 mg PO DAILY [facility] Last Admin: 07/01/17 10:00 Dose: 20 mg Senna (Senokot) 2 tab PO HSPRN PRN PRN Reason: Constipation Sertraline HCl (Zoloft) 75 mg PO DAILY [facility] Last Admin: 07/01/17 08:41 Dose: 75 mg Sodium Chloride ([place] Nasal [place] 0.65%) 0 ml EA NARE QIDPRN PRN PRN Reason: Nasal Congestion Zolpidem Tartrate (Ambien) 5 mg PO HSPRN PRN PRN Reason: Insomnia
[2017-07-01] MEDS: Nystatin Powder 15 GM BOT TOP SCH (19:29)
[2017-07-01] MEDS: Atorvastatin Calcium 20 MG TAB PO SCH (19:29)
[2017-07-01] MEDS: HYDROcodone/Acetaminophen 5/325 mg Tablet PO PRN (20:15)
[2017-07-01 22:43] LABS: Hemoglobin 8.2 g/dL (12.0-16.0); Platelet Count 245 thou/uL (130-400)
[2017-07-02] MEDS: Furosemide 40 MG/4 ML VIAL SLOW IVP SCH ×2 (05:11→14:14)
[2017-07-02 06:15] LABS: #Eosinphils 0.2 thou/uL (0.0-0.7); #Lymphocytes 1.4 thou/uL (1.20-3.40); #Monocytes 0.8 thou/uL (0.11-0.59); #Neutrophils 5.4 thou/uL (1.40-6.50); %Basophils 0.4 % (0.0-1.0); %Eosinophils 3.1 % (0.0-10.0); %Lymphocytes 18.2 % (21.0-51.0); %Monocytes 9.9 % (0.0-10.0); %Neutrophils 68.5 % (42.0-75.0); Hemoglobin 8.4 g/dL (12.0-16.0); Hypochromia SLIGHT = 6-15 cells (100X) (0-5/hpf); MDiff Complete? YES; Mean Corpuscular HGB CONC 29.5 g/dL (32.0-36.0); Mean Corpuscular Hemoglobin 21.1 pg (27.0-31.0); Mean Corpuscular Volume 71.4 fl (81.0-99.0); Mean Platelet Volume 8.7 fL (7.4-10.4); Microcytosis SLIGHT = 6-15 cells (100X) (0-5/hpf); Platelet Count 258 thou/uL (130-400); RBC Distribution Width 19.3 % (11.5-14.5); Red Blood Cell (RBC) Count 4.01 mill/uL (4.20-5.40); White Blood Cell (WBC) Count 7.8 thou/uL (4.8-10.8)
[2017-07-02 06:16] LABS: Albumin 3.7 g/dL (3.4-4.8); Anion Gap 16 mmol/L (10-20); BUN (Urea Nitrogen) 23 mg/dL (9.8-20.1); BUN/Creatinine Ratio 17.42; Calc. Creatinine Clearance 50 mL/min (70-130); Calcium 8.9 mg/dL (7.8-10.44); Carbon Dioxide 30 mmol/L (23-31); Chloride 100 mmol/L (98-107); Estimated GFR-MDRD 39; Glucose 123 mg/dL (83-110); Magnesium 2.3 mg/dL (1.6-2.6); Potassium 3.1 mmol/L (3.5-5.1); Sodium 143 mmol/L (136-145)
[2017-07-02] MEDS: HYDROcodone/Acetaminophen 5/325 mg Tablet PO PRN ×3 (09:22→20:10)
[2017-07-02] MEDS: Ezetimibe 10 MG TAB PO SCH (09:24)
[2017-07-02] MEDS: Gabapentin 300 MG CAP PO SCH ×3 (09:24→20:10)
[2017-07-02] MEDS: Multivitamin W/ Minerals 1 TAB PO SCH (09:25)
[2017-07-02] MEDS: Fluticasone Propionate Nasal Spray 16 gm Bottle NASAL SCH (09:25)
[2017-07-02] MEDS: Nystatin Powder 15 GM BOT TOP SCH ×2 (09:25→20:11)
[2017-07-02] MEDS: Rivaroxaban 10 MG TAB PO SCH (09:25)
--- NOTE | 2017-07-02 14:13 | PDOC.PN ---
- Subjective Encounter Start Date: 07/02/17 Encounter Start Time: 14:12 Patient seen at bedside. No overnight events, still getting dyspneic on exertion , no chest pain. - Objective Resuscitation Status: Resuscitation Status DNR:Do Not Resuscitate MAR Reviewed: Yes Vital Signs & Weight: Vital Signs (12 hours) Temp Pulse Pulse Pulse Pulse Resp BP 07/02/17 12:18 99.0 F 88 16 07/02/17 11:50 89 80 75 128/58 L 07/02/17 09:12 98.8 F 89 16 07/02/17 07:53 07/02/17 07:50 78 24 H 07/02/17 04:00 98.3 F 76 18 BP BP BP Pulse Ox 07/02/17 12:18 141/86 H 93 L 07/02/17 11:50 193/79 H 166/70 H 07/02/17 09:12 182/73 H 95 07/02/17 07:53 100 07/02/17 07:50 100 07/02/17 04:00 123/57 L 100 Weight Admit Weight 193 lb 14.4 oz Weight 188 lb I&O: 07/01/17 07/02/17 07/03/17 06:59 06:59 06:59 Intake Total 1320 1080 Output Total 675 Balance 1320 405 Result Diagrams: 07/02/17 03:57 07/02/17 03:57 Phys Exam - Physical Examination Constitutional: NAD HEENT: moist MMs Neck: no JVD rales B/L Cardiovascular: RRR Gastrointestinal: soft Musculoskeletal: pulses present Neurological: moves all 4 limbs Psychiatric: A&O x 3 Dx/Plan (1) Acute on chronic diastolic (congestive) heart failure Code(s): I50.33 - ACUTE ON CHRONIC DIASTOLIC (CONGESTIVE) HEART FAILURE Status : Acute (2) Acute respiratory failure with hypoxia Code(s): J96.01 - ACUTE RESPIRATORY FAILURE WITH HYPOXIA Status: Acute (3) Coagulopathy Status: Resolved (4) HTN (hypertension) Code(s): I10 - ESSENTIAL (PRIMARY) HYPERTENSION Status: Chronic - Plan cont current plan of care, respiratory therapy, DVT proph w/SCDs * Continue with IV diuresis. * Supplemental 02 * Replete K+ * ASA/Xarelto * Cardizem for rate control * CMET in AM * OOB as tolerates
[2017-07-02] MEDS ORDERED: Potassium Chloride 20 MEQ TAB PO SCH (14:30)
[2017-07-02] MEDS: Atorvastatin Calcium 20 MG TAB PO SCH (20:10)
[2017-07-03 05:07] LABS: #Eosinphils 0.3 thou/uL (0.0-0.7); #Lymphocytes 1.4 thou/uL (1.20-3.40); #Monocytes 0.8 thou/uL (0.11-0.59); %Basophils 0.2 % (0.0-1.0); %Eosinophils 4.2 % (0.0-10.0); %Lymphocytes 18.8 % (21.0-51.0); %Monocytes 10.7 % (0.0-10.0); %Neutrophils 66.1 % (42.0-75.0); Hemoglobin 8.5 g/dL (12.0-16.0); Mean Corpuscular HGB CONC 28.4 g/dL (32.0-36.0); Mean Corpuscular Hemoglobin 20.6 pg (27.0-31.0); Mean Corpuscular Volume 72.4 fl (81.0-99.0); Mean Platelet Volume 11.4 fL (7.4-10.4); Platelet Count 258 thou/uL (130-400); RBC Distribution Width 19.1 % (11.5-14.5); Red Blood Cell (RBC) Count 4.15 mill/uL (4.20-5.40); White Blood Cell (WBC) Count 7.5 thou/uL (4.8-10.8)
[2017-07-03] MEDS: Furosemide 40 MG/4 ML VIAL SLOW IVP SCH ×2 (05:20→13:47)
[2017-07-03 05:33] LABS: ALT (SGPT) 9 U/L (8-55); AST (SGOT) 20 U/L (5-34); Albumin 3.6 g/dL (3.4-4.8); Alkaline Phosphatase 66 U/L (40-150); Anion Gap 16 mmol/L (10-20); BUN (Urea Nitrogen) 31 mg/dL (9.8-20.1); BUN/Creatinine Ratio 22.14; Bilirubin, Total 0.5 mg/dL (0.2-1.2); Calc. Creatinine Clearance 47 mL/min (70-130); Calcium 9.2 mg/dL (7.8-10.44); Carbon Dioxide 29 mmol/L (23-31); Chloride 103 mmol/L (98-107); Estimated GFR-MDRD 37; Globulin 2.5 g/dL (2.4-3.5); Glucose 133 mg/dL (83-110); Magnesium 2.5 mg/dL (1.6-2.6); Phosphorus 5.1 mg/dL (2.3-4.7); Potassium 3.6 mmol/L (3.5-5.1); Protein, Total 6.1 g/dL (6.0-8.3); Sodium 144 mmol/L (136-145)
[2017-07-03] MEDS: Multivitamin W/ Minerals 1 TAB PO SCH (09:37)
[2017-07-03] MEDS: Ezetimibe 10 MG TAB PO SCH (09:37)
[2017-07-03] MEDS: Gabapentin 300 MG CAP PO SCH ×2 (09:37→14:24)
[2017-07-03] MEDS: Rivaroxaban 10 MG TAB PO SCH (09:37)
[2017-07-03] MEDS: HYDROcodone/Acetaminophen 5/325 mg Tablet PO PRN ×2 (09:38→15:15)
[2017-07-03] MEDS: Nystatin Powder 15 GM BOT TOP SCH (11:53)
[2017-07-03] MEDS: Fluticasone Propionate Nasal Spray 16 gm Bottle NASAL SCH (11:53)
[2017-07-03] MEDS ORDERED: Potassium Chloride 20 MEQ TAB PO SCH (13:30)
--- NOTE | 2017-07-03 14:25 | DIS ---
DATE OF ADMISSION: 06/28/2017 DATE OF DISCHARGE: 07/03/2017 DISCHARGE DISPOSITION: Magnified intermediate. Patient to follow up with Dr. Mccloud. The patient was seen and examined on the day of discharge. Denies any new complaints. No chest pain , shortness of breath, palpitations. Symptomatically feels much better. Requesting to be discharged . BRIEF HOSPITAL COURSE: The patient is a 77-year-old female with coronary artery disease, chronic atr ial fibrillation on anticoagulation, and chronic diastolic heart failure, who presented to the [facility] on 06/[facility]2017 with shortness of breath. Please refer to the history and physical dated 06/28/[address] Goss for further details. The patient was admitted to the telemetry unit with a diagnosis of congestive heart failure exacerbat ion. She was started on IV diuretics with slow response. Her weight on the day of discharge is 188 pounds from 193 pounds on admission. Her creatinine on the day of discharge is 1.40 compared to 1.14 on admission. We will change the Lasix to oral. The patient has been extensively counseled on hear t failure. Fluid restriction was emphasized. Patient stated understanding. FINAL DIAGNOSES: 1. Acute on chronic diastolic heart failure exacerbation. 2. Acute hypoxic respiratory failure. 3. Coronary artery disease, status post stent. 4. Chronic atrial fibrillation on anticoagulation. 5. Anxiety and depression. 6. Sick sinus syndrome, status post pacemaker. 7. Obesity with body mass index 34.8. 8. Chronic kidney disease stage 3. 9. Dementia. 10. Chronic anemia. 11. Sick sinus syndrome, status post pacemaker. 12. Overactive bladder. 13. Peripheral neuropathy. 14. Chronic anemia. Plan of care was discussed with the patient in detail. She stated understanding. Total time coordinating the discharge of this patient was 36 minutes.
[2017-07-03 15:35] VITALS: BP 122/56; TEMP 98.1
--- NOTE | 2017-07-22 15:14 | EKG ---
Test Reason : CP Blood Pressure : / mmHG Vent. Rate : 084 BPM Atrial Rate : 090 BPM P-R Int : 000 ms QRS Dur : 076 ms QT Int : 384 ms P-R-T Axes : 000 059 -71 degrees QTc Int : 453 ms Demand pacemaker; interpretation is based on intrinsic rhythm Atrial fibrillation with premature ventricular or aberrantly conducted complexes Low voltage QRS Abnormal ECG Confirmed by ALEKSANDER SUTTON, ANA ROSA ([id number]), graphics editor NENA MOREAU ([id number]) on 07/22/2017 3:14:05 PM Referred By: Confirmed By:ANA ROSA ARMIJO MD
== END 2017-07-03 15:45 | DRG 291 ==
LOC: ERS 10:08 → ERHOLD 11:56 → 2NO 16:52
PROVIDERS: ADMIT Internal Medicine; ATTEND Internal Medicine
DX: I13.0 Hypertensive heart and chronic kidney disease with heart failure and stage 1 through stage 4 chronic kidney disease, or unspecified chronic kidney disease (principal); I50.33 Acute on chronic diastolic (congestive) heart failure; J96.01 Acute respiratory failure with hypoxia; L89.151 Pressure ulcer of sacral region, stage 1; E11.42 Type 2 diabetes mellitus with diabetic polyneuropathy; E11.22 Type 2 diabetes mellitus with diabetic chronic kidney disease; D68.9 Coagulation defect, unspecified; I48.0 Paroxysmal atrial fibrillation; L89.612 Pressure ulcer of right heel, stage 2; D50.9 Iron deficiency anemia, unspecified; E66.9 Obesity, unspecified; E78.5 Hyperlipidemia, unspecified; F31.9 Bipolar disorder, unspecified; G30.9 Alzheimer's disease, unspecified; F02.80 Dementia in other diseases classified elsewhere, unspecified severity, without behavioral disturbance, psychotic disturbance, mood disturbance, and anxiety; F41.8 Other specified anxiety disorders; N18.3 Chronic kidney disease, stage 3 (moderate); K21.9 Gastro-esophageal reflux disease without esophagitis; Z85.3 Personal history of malignant neoplasm of breast; Z87.891 Personal history of nicotine dependence; Z66 Do not resuscitate; J44.9 Chronic obstructive pulmonary disease, unspecified; Z95.0 Presence of cardiac pacemaker; Z95.5 Presence of coronary angioplasty implant and graft; I25.10 Atherosclerotic heart disease of native coronary artery without angina pectoris; Z68.34 Body mass index [BMI] 34.0-34.9, adult; N32.81 Overactive bladder; G89.4 Chronic pain syndrome
CPT/HCPCS: 36415; 51702; 71045; 80053; 80069; 82550; 82553; 82565; 82728; 82805; 83540; 83550; 83605; 83690; 83735; 83880; 84484; 84550; 85014; 85018; 85025; 85049; 85610; 85730; 87040; 87149; 87804; 93005; 93798; 94640; 96374; G8978-GP-CK; G8979-GP-CJ; J1940; J7620

== ENCOUNTER 2017-08-25 13:16 | Emergency (ER) | payer MEDICARE, MEDICAID ==
[2017-08-25 14:17] LABS: ALT (SGPT) 7 U/L (8-55); AST (SGOT) 16 U/L (5-34); Albumin 3.8 g/dL (3.4-4.8); Alkaline Phosphatase 70 U/L (40-150); Anion Gap 13 mmol/L (10-20); BUN (Urea Nitrogen) 14 mg/dL (9.8-20.1); Bilirubin, Total 0.6 mg/dL (0.2-1.2); Calc. Creatinine Clearance 0 mL/min (70-130); Calcium 9.2 mg/dL (7.8-10.44); Carbon Dioxide 33 mmol/L (23-31); Chloride 100 mmol/L (98-107); Estimated GFR-MDRD 45; Globulin 2.2 g/dL (2.4-3.5); Glucose 146 mg/dL (83-110); Sodium 142 mmol/L (136-145)
--- NOTE | 2017-08-25 14:19 | RAD ---
PORTABLE CHEST 1 VIEW: Date: 08/25/17 Time: 1343 hours HISTORY: Chest pain, fall. FINDINGS: Comparison made with exam of 06/28/17. Left-sided pacemaker device remains in place. The heart is enlarged. No lobar consolidation, pneumoth oraces, saida pulmonary edema, or large effusions are seen. IMPRESSION: Stable exam. No acute process. POS: OFF
[2017-08-25 14:21] LABS: CKMB 1.4 ng/mL (0-6.6); Troponin I 0.017 ng/mL (< 0.028)
[2017-08-25 14:56] LABS: Bilirubin Negative (Negative); Blood, Urine Trace (Negative); Clarity CLEAR (Clear); Glucose, Urine (Dipstick) Negative (Negative); Leukocyte Moderate (Negative); Nitrite Positive (Negative); Protein, Urine (Dipstick) Negative (Neg-Trace); Specific Gravity, Urine 1.009 (1.002-1.036); pH, Urine 7.5 (5.0-9.0)
[2017-08-25 14:57] LABS: #Eosinphils 0.1 thou/uL (0.0-0.7); #Lymphocytes 0.6 thou/uL (1.20-3.40); #Monocytes 0.3 thou/uL (0.11-0.59); #Neutrophils 2.1 thou/uL (1.40-6.50); %Basophils 0.2 % (0.0-1.0); %Eosinophils 4.5 % (0.0-10.0); %Lymphocytes 19.8 % (21.0-51.0); %Monocytes 10.6 % (0.0-10.0); %Neutrophils 64.9 % (42.0-75.0); Hemoglobin 11.9 g/dL (12.0-16.0); Mean Corpuscular HGB CONC 31.3 g/dL (32.0-36.0); Mean Corpuscular Hemoglobin 26.6 pg (27.0-31.0); Mean Corpuscular Volume 85.1 fl (81.0-99.0); Mean Platelet Volume 10.9 fL (7.4-10.4); Platelet Count 170 thou/uL (130-400); RBC Distribution Width 22.7 % (11.5-14.5); Red Blood Cell (RBC) Count 4.48 mill/uL (4.20-5.40); White Blood Cell (WBC) Count 3.2 thou/uL (4.8-10.8)
[2017-08-25 15:00] LABS: Bacteria/HPF 4+ HPF (None Seen); Hyaline Casts/LPF 0-3 HYALINE CAST LPF (0-3 Hyaline); RBC/HPF 0-3 HPF (0-3); Squamous Epithelial None Seen HPF (0-3)
== END 2017-08-25 17:00 | disposition home or self-care (01) ==
LOC: ERS 13:16
DX: N39.0 Urinary tract infection, site not specified (principal); R07.9 Chest pain, unspecified; I10 Essential (primary) hypertension; J44.9 Chronic obstructive pulmonary disease, unspecified; I25.2 Old myocardial infarction; F41.9 Anxiety disorder, unspecified; F32.9 Major depressive disorder, single episode, unspecified; Z79.899 Other long term (current) drug therapy; Z79.82 Long term (current) use of aspirin; W19.XXXA Unspecified fall, initial encounter
CPT/HCPCS: 36415; 51701; 71045; 80053; 80164; 81003; 81015; 82553; 83880; 84484; 85025; 87077; 87086; 87186; 93005; 94760; A4353

== ENCOUNTER 2017-09-13 06:25 | Inpatient (IN) | payer MEDICARE, MEDICAID ==
[2017-09-13 07:07] LABS: #Lymphocytes 0.8 thou/uL (1.20-3.40); %Eosinophils 0.2 % (0.0-10.0); %Lymphocytes 5.6 % (21.0-51.0); %Monocytes 7.3 % (0.0-10.0); %Neutrophils 86.9 % (42.0-75.0); Hemoglobin 13.8 g/dL (12.0-16.0); Mean Corpuscular HGB CONC 31.4 g/dL (32.0-36.0); Mean Corpuscular Hemoglobin 27.5 pg (27.0-31.0); Mean Corpuscular Volume 87.5 fl (81.0-99.0); Mean Platelet Volume 6.8 fL (7.4-10.4); Platelet Count 141 thou/uL (130-400); RBC Distribution Width 18.7 % (11.5-14.5); Red Blood Cell (RBC) Count 5.02 mill/uL (4.20-5.40); White Blood Cell (WBC) Count 13.8 thou/uL (4.8-10.8)
[2017-09-13 07:22] LABS: INR-International Normal Ratio 3.3; PTT 48.4 SEC (22.9-36.1); Prothrombin Time 35.3 SEC (12.0-14.7)
[2017-09-13 07:25] LABS: ALT (SGPT) 8 U/L (8-55); AST (SGOT) 13 U/L (5-34); Albumin 3.6 g/dL (3.4-4.8); Alkaline Phosphatase 71 U/L (40-150); Anion Gap 15 mmol/L (10-20); BUN (Urea Nitrogen) 18 mg/dL (9.8-20.1); Bilirubin, Total 0.8 mg/dL (0.2-1.2); CK (CPK) 16 U/L (29-168); Calc. Creatinine Clearance 0 mL/min (70-130); Calcium 9.1 mg/dL (7.8-10.44); Carbon Dioxide 31 mmol/L (23-31); Chloride 100 mmol/L (98-107); Estimated GFR-MDRD 43; Globulin 2.4 g/dL (2.4-3.5); Glucose 195 mg/dL (83-110); Potassium 4.5 mmol/L (3.5-5.1); Sodium 141 mmol/L (136-145)
[2017-09-13 07:27] LABS: Magnesium 1.9 mg/dL (1.6-2.6)
[2017-09-13 07:29] LABS: CKMB 0.4 ng/mL (0-6.6)
[2017-09-13] MEDS ORDERED: Acetaminophen 325 MG Suppository ONE (07:53)
[2017-09-13] MEDS ORDERED: Acetaminophen 650 MG Suppository ONE (07:53)
--- NOTE | 2017-09-13 08:26 | RAD ---
FRONTAL VIEW CHEST: INDICATIONS: Cough. Altered mental status. COMPARISON: 07/28/2017 FINDINGS: The cardiac silhouette remains enlarged. This obscures the left lung base. There is bilateral vascu lar congestion and evidence of pulmonary edema. No additional significant interval change. IMPRESSION: Decompensated congestive heart failure. Continued followup is recommended. POS: [facility]
[2017-09-13] MEDS ORDERED: Vancomycin HCl 1.5 GM in Sodium Chloride 0.9% 250 ML 300 ML IVPB SCH (09:45)
[2017-09-13] MEDS ORDERED: Piperacillin/Tazobactam 4.5 GM in Sodium Chloride 0.9% 100 ML IVPB SCH (09:45)
[2017-09-13 09:51] LABS: Bilirubin Small (Negative); Blood, Urine Large (Negative); Clarity TURBID (Clear); Glucose, Urine (Dipstick) Negative (Negative); Leukocyte Large (Negative); Nitrite Negative (Negative); Protein, Urine (Dipstick) 100 mg/dL (Neg-Trace); Specific Gravity, Urine 1.021 (1.002-1.036)
[2017-09-13 09:53] LABS: Bacteria/HPF 4+ HPF (None Seen)
--- NOTE | 2017-09-13 09:58 | CT ---
NONCONTRAST HEAD CT: Comparison: 04-17-12 History: Altered mental status. FINDINGS: Slightly limited evaluation due to motion degradation. No parenchymal hemorrhage. No extraaxial hemat kaia. No midline shift. Basilar cisterns are patent. Age appropriate atrophy. Cortical deal white kendall er differentiation preserved. Ventricles and sulci are patent and symmetric. Chronic small vessel ischemic change white matter identified. Calvarium is intact. Adequate aeration of the sinuses and mastoid air cells. Stable pleural based dural based calcification along the left middle cranial fossa suggesting a calci fied meningioma. IMPRESSION: No acute intracranial process. POS: [facility]
[2017-09-13 10:04] LABS: Pathc Cast-AUWi Flag 15.09 (0-2.49); Yeast-AUWi Flag 32.5 (0-25.0)
[2017-09-13 10:15] LABS: Hyaline Casts/LPF 0-3 HYALINE CAST LPF (0-3 Hyaline); Yeast-All Forms None Seen HPF (None Seen)
[2017-09-13 10:16] LABS: Other Casts/LPF None Seen LPF (0-3 Hyaline)
[2017-09-13 10:40] LABS: Troponin I 0.014 ng/mL (< 0.028)
--- NOTE | 2017-09-13 12:26 | PDOC.EVN ---
Event Note - Event Note Event Note: [id number] H&P Dictated 1. UTI 2. ALtered mental status 3. htn 4. h/o afib 6. chronic anticoagulation plan see orders
[2017-09-13] MEDS ORDERED: Ondansetron HCl/PF 4 MG/2 ML Vial IVP PRN (12:34)
--- NOTE | 2017-09-13 13:29 | HP ---
DATE OF ADMISSION: 09/13/2017 CHIEF COMPLAINT: Altered mental status. HISTORY OF PRESENT ILLNESS: The patient is a 77-year-old female with past medical history of hyperte nsion, atrial fibrillation, coronary artery disease, COPD, GERD, CKD stage 3, came to the hospital fr om the [facility] due to altered mental status. The patient has history of dementia and has some u nderlying history of depression, but has baseline confusion, but according to the [facility], patie nt was having worsening confusion, so patient was brought to the ER. Upon the ER arrival, according to the ED nurse and ED physician, the patient is having some dyspnea and some cough with sputum produ ction. The sputum is brown in color, so I was called for the admission. The patient is awake, not o riented at this time. Denies any chest pain, denies any trouble breathing. Complains of some cough. Denies any nausea, denies vomiting, denies diarrhea, denies any fever, denies any chills. PAST MEDICAL HISTORY: As per HPI. PAST SURGICAL HISTORY: Mastectomy, hysterectomy, cholecystectomy. SOCIAL HISTORY: Denies smoking, denies alcohol, denies any drugs. MEDICATIONS: Reviewed. FAMILY HISTORY: Denies any heart problems. REVIEW OF SYSTEMS: Constitutional: Denies any fever, denies any chills. Eyes: Denies any vision p roblems. Ears: Denies any hearing loss. Neck: Denies any neck pain. Cardiovascular System: Scott es any chest pain. Denies any palpitation. Respiratory System: Positive for cough with sputum prod uction according to the RN. Gastrointestinal System: Denies any nausea. Denies any vomiting. Claire tourinary: Denies dysuria. Cranial nerve system: Denies syncope. Psychiatric: Positive for confu toshia. Integumentary: Denies any rash. All other review of systems are reviewed and are negative. PHYSICAL EXAMINATION: CONSTITUTIONAL/VITAL SIGNS: At the time of H&P performed, blood pressure is 119/50, heart rate 86, r espiratory rate 18. GENERAL: The patient appears comfortable. HEENT: Pupils equal, round, and reactive. Oral cavity, poor dentition. NECK: Supple, no JVD. CARDIAC: S1, S2 present. Regular rate and rhythm. No murmurs, no rubs, no gallops. RESPIRATORY SYSTEM: No wheezing, no rhonchi. Breath sounds bilaterally. GASTROINTESTINAL: Abdomen is soft, nontender. No guarding, no organomegaly, no masses felt. MUSCULOSKELETAL: Positive for right heel pressure ulcer present. Positive for dressing. PSYCHIATRIC: Mood is calm at this time. INTEGUMENTARY: Positive for sacral decubitus ulcer present, grade 2. CRANIAL NERVE SYSTEM: Awake. Speech clear, follows some commands. LABORATORY DATA: At the time of H and P performed, UA showed greater than 50 to too numerous to coun t wbc's, 4-6 rbc's. BMP showed sodium 141, potassium 4.5, chloride 100, CO2 of 31, BUN 18, creatinin e 1.22. PT 35.3, INR 3.3, white count 13.8, hemoglobin 13.8, platelet count is 141. ASSESSMENT AND PLAN: The patient is 77-year-old female, 1. Altered mental status/metabolic encephalopathy probably secondary to urinary tract infection. Pl an, switch to IV antibiotics. Plan to monitor the patient closely. Plan to consult ID to evaluate t he patient. 2. Decubitus ulcer plus right heel ulcer plus sacral decubitus ulcer. Plan to consult Wound Care to evaluate the patient. Continue wound care. 3. History of hypertension. Monitor blood pressure. Continue blood pressure meds. 4. History of atrial fibrillation. Monitor INR closely, hold Coumadin today. Continue tomorrow if INR is in the rate. 5. History of coronary artery disease. Continue aspirin. The case was discussed in detail with the patient. The patient is FULL CODE at this time.
[2017-09-13 13:30] LABS: Troponin I 0.017 ng/mL (< 0.028)
[2017-09-13] MEDS ORDERED: Piperacillin/Tazobactam 3.375 GM in Sodium Chloride 0.9% 100 ML IVPB SCH (18:00)
[2017-09-13] MEDS: Sodium Chloride 0.9% 1,000 ML IV SCH ×2 (18:24→20:03)
[2017-09-13] MEDS: Gabapentin 300 MG CAP PO SCH ×2 (18:25→21:50)
[2017-09-13] MEDS: Piperacillin/Tazobactam 3.375 GM in Sodium Chloride 0.9% 100 ML IVPB SCH (20:02)
[2017-09-13] MEDS: Famotidine 40 MG/4 ML VIAL SLOW IVP SCH (21:51)
[2017-09-14] MEDS: Piperacillin/Tazobactam 3.375 GM in Sodium Chloride 0.9% 100 ML IVPB SCH ×4 (04:54→23:44)
[2017-09-14 06:03] LABS: INR-International Normal Ratio 2.3; Prothrombin Time 26.3 SEC (12.0-14.7)
[2017-09-14 06:12] LABS: Anion Gap 12 mmol/L (10-20); BUN (Urea Nitrogen) 21 mg/dL (9.8-20.1); Calc. Creatinine Clearance 118 mL/min (70-130); Carbon Dioxide 32 mmol/L (23-31); Chloride 105 mmol/L (98-107); Estimated GFR-MDRD 44; Glucose 116 mg/dL (83-110); Potassium 3.8 mmol/L (3.5-5.1); Sodium 145 mmol/L (136-145)
[2017-09-14 06:34] LABS: #Eosinphils 0.1 thou/uL (0.0-0.7); #Lymphocytes 1.3 thou/uL (1.20-3.40); #Monocytes 0.6 thou/uL (0.11-0.59); #Neutrophils 5.4 thou/uL (1.40-6.50); %Basophils 0.6 % (0.0-1.0); %Eosinophils 0.7 % (0.0-10.0); %Lymphocytes 17.8 % (21.0-51.0); %Monocytes 7.8 % (0.0-10.0); %Neutrophils 73.1 % (42.0-75.0); Band 5 % (5-11); Eosinophils 1 % (0-10); Hemoglobin 12.1 g/dL (12.0-16.0); Hypochromia SLIGHT = 6-15 cells (100X) (0-5/hpf); Lymphocytes 11 % (21-51); MDiff Complete? YES; Mean Corpuscular HGB CONC 31.5 g/dL (32.0-36.0); Mean Corpuscular Hemoglobin 27.5 pg (27.0-31.0); Mean Corpuscular Volume 87.4 fl (81.0-99.0); Mean Platelet Volume 7.6 fL (7.4-10.4); Monocytes 9 % (0-10); Neutrophil 74 % (42-75); PLT Morphology Comment Appears Decreased; Platelet Count 120 thou/uL (130-400); RBC Distribution Width 18.4 % (11.5-14.5); Red Blood Cell (RBC) Count 4.41 mill/uL (4.20-5.40); White Blood Cell (WBC) Count 7.3 thou/uL (4.8-10.8)
[2017-09-14] MEDS: Aspirin 81 mg Enteric Coated Tablet PO SCH (09:38)
[2017-09-14] MEDS: Oxybutynin 5 MG TAB PO SCH (09:38)
[2017-09-14] MEDS: Gabapentin 300 MG CAP PO SCH ×3 (09:39→20:32)
[2017-09-14] MEDS: Ezetimibe 10 MG TAB PO SCH (09:39)
[2017-09-14] MEDS: Furosemide 40 MG TAB PO SCH (09:39)
[2017-09-14] MEDS: Atorvastatin Calcium 20 MG TAB PO SCH (09:39)
--- NOTE | 2017-09-14 11:36 | PDOC.PN ---
- Subjective Encounter Start Date: 09/14/17 Encounter Start Time: 13:46 CC: ALtere dmental status sub: pt denies dyspnea. - Objective Resuscitation Status: Resuscitation Status FULL:Full Resuscitation Vital Signs & Weight: Vital Signs (12 hours) Temp Pulse Resp BP Pulse Ox 09/14/17 11:31 98.8 F 86 20 120/53 L 96 09/14/17 10:25 73 20 95 09/14/17 09:38 74 09/14/17 08:01 98 09/14/17 08:00 98.3 F 73 20 98 09/14/17 07:59 74 16 98 09/14/17 07:12 98.3 F 76 20 126/60 98 09/14/17 04:00 99.2 F 106 H 16 117/56 L 99 Weight Weight 184 lb 4.8 oz I&O: 09/13/17 09/14/17 09/15/17 06:59 06:59 06:59 Intake Total 942 Balance 942 Result Diagrams: 09/14/17 05:41 09/14/17 05:41 Phys Exam - Physical Examination Constitutional: NAD HEENT: moist MMs Neck: no JVD Respiratory: no wheezing, no rales, no rhonchi Cardiovascular: RRR, no rub no murmur, no gallop Gastrointestinal: soft, non-tender, positive bowel sounds Musculoskeletal: no edema Neurological: non-focal, normal sensation Psychiatric: normal affect, A&O x 3 Dx/Plan - Plan Pt is 77 yrs old female now admitted to hospital due to altered mental status 1. UTI 2. ALtered mental status 3. htn 4. h/o afib 6. chronic anticoagulation 7. H/O Dementia PLAN: Urine culture positive for gram negative rods. Continue IV zosyn Mental status stable. continue home meds will resume xarelto. Monitor INR closely continue bp meds. Monitor bp closely case d/w pt & RN
[2017-09-14 12:03] VITALS: BMI 33.6
--- NOTE | 2017-09-14 14:22 | PQF ---
CLINICAL DOCUMENTATION IMPROVEMENT CLARIFICATION FORM: ICD-10 Updated PLEASE DO AN ADDENDUM TO THE PROGRESS NOTE WITH ANY DOCUMENTATION UPDATES OR ADDITIONS AND CARRY THROUGH TO DC SUMMARY. THANK YOU. DATE: 09/14, & ATTN : DR. SVETLANA PEACOCK / DR. Jack MTZ Please exercise your independent, professional judgment in responding to the clarification form. Clinical indicators are provided on the bottom of this form for your review. Please check appropriate box(es): [ x ] Sepsis due to: (Pna, UTI, gangrenous gall bladder, etc.) _uti [ ] Severe sepsis with acute organ dysfunction of: (Examples: respiratory failure, encephalopathy, acute kidney failure, other) [ ] Localized infection without sepsis [ ] Other diagnosis [ ] Unable to determine For continuity of documentation, please document condition throughout progress notes and discharge summary. Thank You. CLINICAL INDICATORS - SIGNS / SYMPTOMS / LABS ER PRESENTATION 09/13: ALTERED MENTAL STATUS T: 102.8 (R) RR: 36 HR : 109 WBC: 13.8 ER PHYSICIAN DIAGNOSES DOCUMENTATION 09/13: AMS, SEPSIS, UTI, URI ATTENDING H&P DOCUMENTATION: ASSESSMENT/PLAN: 1) AMS/METABOLIC ENCEPHALOPATHY PROBABLY 2/2 UTI URINALYSIS: LARGE LEUKOCYTE ESTERASE, WBC TNTC, 4+ BACTERIA; URINE CX: GNR , GNR #2 RISK FACTORS: FEVER (102.8) UTI (GNR, GNR #2) METABOLIC ENCEPHALOPATHY TREATMENTS: IV ANTIBIOTICS (ZOSYN 09/13 - PRESENT; VANCOMYCIN 09/13) IVF (NS 09/13 - PRESENT) INFECTIOUS DX CONSULT THANK YOU! Agnieszka (This form is maintained as a part of the permanent medical record) 2014 [employer]. All Rights Reserved Agnieszka Nye RN, BSN [email or web address] Office: [phone] [facility] SYSTEM[facility]
--- NOTE | 2017-09-14 14:31 | CON ---
DATE OF CONSULTATION: 09/14/2017 REASON FOR CONSULTATION: Altered mental status and possible symptomatic UTI. HISTORY OF PRESENT ILLNESS: A 77-year-old with history of hypertension, atrial fibrillation, coronary artery disease, COPD and renal insufficiency stage III, who is a halfway resident. According to the nurse, in the halfway, she was less responsive and brought to the emergency room because of that. On arrival, she had some cough, sputum production and dyspnea and initial findings with a BP of 190/50, respiratory rate 18 and heart rate 86. The pertinent findings included a white cell count of 13.8 with slight left shift, mostly mature neutrophils and creatinine 1.22. Other elements of chemistry not remarkable except for elevated glucose. Cardiac enzymes were normal. Lipase was 4. Chest x-ray with evidence of bilateral vascular congestion. The patient has been given inhalers, aspirin, Lipitor, Cardizem, Zetia, Pepcid, Lasix, Namenda and Zosyn. Microbiology studies showed urine culture, two different gram negatives yet to be identified, greater than 100 CFUs per mL. There is a previous one from 08/25 with Klebsiella pneumo with a broad susceptibility profile. Currently, she is drowsy. She was slumped over and leaning towards the left side. She was arousable and she would periodically open her eyes and reply to questions with some sort of a monosyllabic fashion, but would immediately fall asleep again and had to be aroused and so on. The interview was difficult because of that. Could not get a proper review of systems, but in talking with the nurse and reviewing the records, she had had no seizure activity, no trauma. No abdominal pain or vomiting, no diarrhea. The patient is voiding spontaneously. PAST MEDICAL HISTORY: Coronary artery disease, COPD, GERD, renal insufficiency and AFib. PAST SURGICAL HISTORY: Mastectomy and bilateral hysterectomy. SOCIAL HISTORY: Never a smoker. half-way resident. CURRENT MEDICATIONS: Have been discussed above. FAMILY HISTORY: Noncontributory. PHYSICAL EXAMINATION: VITAL SIGNS: T-max 100, blood pressure 120/53, pulse 86, respirations 20 and O2 sat 96% with nasal cannula O2. SKIN: A small little area of round ulceration in the left ankle region posteriorly and in the presacral area, there was an area of erythema with stage I-II lesions, little bit of maceration in the left inguinal area. No lymphadenopathy. HEENT: Ocular movements are conjugate. Conjunctivae normal. Oral cavity with no [place] teeth left. NECK: Supple. LUNGS: With faint basilar crackles. HEART: S1, S2. Diminished heart sounds. No obvious murmurs. ABDOMEN: Not distended or tender. No ascites. No bladder distention, no organomegaly diffusely weak. She is able to move extremities on command. NEUROLOGIC: Plantar responses are flexure. Pulses are 1+ in dorsalis pedis. She is arousable, but hard to get answers from her. She told me her name. She knew she was in the hospital in [place]. Responses were very limited. She had difficult time in staying awake. LABORATORY DATA: White cell count is down to 7.3, hemoglobin 12 and platelets 120,000, normal differential at this time. INR 2.3. Sodium 145, creatinine is 1.20 and glucose 116. Normal liver profile. CK 16. Urinalysis with greater than 50 wbc's and protein 100. Influenza A and B was negative. ASSESSMENT AND PLAN: Coronary artery disease; reported chronic obstructive pulmonary disease; obesity and change in mental status, which was the reason for her to be transferred over here. On arrival, she had some neutrophilia, abnormal urinalysis with positive urine culture, blood culture thus far negative. At this point, we will check her abdomen, CT stone protocol, rule out deep vein thrombosis. If the checks are normal, then we will recommend discontinuation of antimicrobial therapy after tomorrow. This as assuming she only has a simple case of cystitis. We will need to verify postvoid residuals. The findings in the urinalysis may not be related to the mental status changes and other issues such as for example hypercapnia due to hypoventilation syndrome, cerebrovascular accident associated with atrial fibrillation or decompensated congestive heart failure should be considered as well. MTDD
--- NOTE | 2017-09-14 15:28 | CT ---
CT ABDOMEN AND PELVIS PERFORMED WITHOUT CONTRAST ENHANCEMENT: HISTORY: Leukocytosis. Abnormal urinalysis. Hematuria. FINDINGS: CHEST: There are some infiltrative appearing changes of the right lower lobe. Some [place] in the lung [place] suggest some element of edema. There is a left-sided pleural effusion, which is small. ABDOMEN: There is moderate pericardial effusion present. The liver is normal in size. The spleen a ppears enlarged and measures 12.5 cm in length and, overall, appears to be of increased volume. The pancreas is mildly atrophic. The gallbladder appears to have been removed. Right and left adrenal glands are normal in appearance. Right and left kidneys are not obstructed. No renal or ureteral calculi are demonstrated. There is no significant periaortic or mesenteric lymp hadenopathy. PELVIS: I do not see any abnormality in the region of the appendix. There is no adenopathy, mass, o r free fluid. The bladder wall appears slightly thickened, raising the possibility of cystitis funez e, somewhat difficult to assess due to under-distention. Scoliotic change to the spine is present. IMPRESSION: 1. Right lower lobe parenchymal changes, suggesting some infiltrate. 2. There is also suggestion of some element of pulmonary edema. 3. Moderate pericardial effusion. 4. Splenomegaly. 5. Questionable slight bladder wall thickening, which could be on the basis of the cystitis. POS: [facility]
[2017-09-14] MEDS: Sodium Chloride 0.9% 1,000 ML IV SCH (17:37)
[2017-09-14] MEDS: Famotidine 40 MG/4 ML VIAL SLOW IVP SCH (20:54)
[2017-09-15] MEDS: Piperacillin/Tazobactam 3.375 GM in Sodium Chloride 0.9% 100 ML IVPB SCH ×4 (04:43→23:16)
[2017-09-15] MEDS ORDERED: Non-Formulary Item 1 EACH (Rivaroxaban [Xarelto] 20 MG) PO SCH (09:00)
[2017-09-15] MEDS: Oxybutynin 5 MG TAB PO SCH (09:03)
[2017-09-15] MEDS: Gabapentin 300 MG CAP PO SCH ×4 (09:04→20:51)
[2017-09-15] MEDS: Rivaroxaban 10 MG TAB PO SCH (09:05)
[2017-09-15] MEDS: Ezetimibe 10 MG TAB PO SCH (09:05)
[2017-09-15] MEDS: Furosemide 40 MG TAB PO SCH (09:05)
[2017-09-15] MEDS: Aspirin 81 mg Enteric Coated Tablet PO SCH (09:05)
[2017-09-15] MEDS: Atorvastatin Calcium 20 MG TAB PO SCH (09:05)
--- NOTE | 2017-09-15 11:27 | PDOC.PN ---
- Subjective Encounter Start Date: 09/15/17 Encounter Start Time: 11:00 Subjective: is awake, not oriented -: not in distress -: moves all extremities, ate her breakfast per staff - Objective Resuscitation Status: Resuscitation Status DNR:Do Not Resuscitate MAR Reviewed: Yes Vital Signs & Weight: Vital Signs (12 hours) Temp Pulse Resp BP Pulse Ox 09/15/17 09:03 67 09/15/17 08:39 95 09/15/17 08:37 67 20 95 09/15/17 08:00 98.5 F 75 20 99 09/15/17 07:55 98.5 F 75 20 134/61 99 09/15/17 00:27 100 Weight Admit Weight 184 lb Weight 184 lb I&O: 09/14/17 09/15/17 09/16/17 06:59 06:59 06:59 Intake Total 942 1300 Output Total 2 Balance 942 1298 Result Diagrams: 09/14/17 05:41 09/14/17 05:41 Phys Exam - Physical Examination HEENT: PERRLA, moist MMs Neck: no JVD, supple Respiratory: no wheezing, no rales Cardiovascular: RRR, no significant murmur Gastrointestinal: soft, non-tender, positive bowel sounds Musculoskeletal: no edema, pulses present Neurological: non-focal, moves all 4 limbs Dx/Plan (1) Acute encephalopathy Code(s): G93.40 - ENCEPHALOPATHY, UNSPECIFIED Status: Resolved (2) UTI (urinary tract infection) Status: Acute Qualifiers: Urinary tract infection type: acute cystitis Hematuria presence: without hematuria Qualified Code(s): N30.00 - Acute cystitis without hematuria (3) Alzheimer's dementia Code(s): G30.9 - ALZHEIMER'S DISEASE, UNSPECIFIED Status: Chronic Qualifiers: Alzheimer's disease onset: unspecified onset Dementia behavioral disturbance: without behavioral disturbance Qualified Code(s): G30.9 - Alzheimer's disease, unspecified; F02.80 - Dementia in other diseases classified elsewhere without behavioral disturbance; F02.80 - Dementia in other diseases classified elsewhere without behavioral disturbance; F02.80 - Dementia in other diseases classified elsewhere without behavioral disturbance (4) CAD (coronary artery disease) Code(s): I25.10 - ATHSCL HEART DISEASE OF [place] CORONARY ARTERY W/O ANG PCTRS Status: Chronic Qualifiers: Coronary Disease-Associated Artery/Lesion type: [place] artery [place] vs. transplanted heart: [place] heart Associated angina: without angina Qualified Code(s): I25.10 - Atherosclerotic heart disease of [place] coronary artery without angina pectoris (5) COPD (chronic obstructive pulmonary disease) Status: Chronic Qualifiers: COPD type: unspecified COPD Qualified Code(s): J44.9 - Chronic obstructive pulmonary disease, unspecified (6) HTN (hypertension) Code(s): I10 - ESSENTIAL (PRIMARY) HYPERTENSION Status: Chronic Qualifiers: Hypertension type: essential hypertension Qualified Code(s): I10 - Essential (primary) hypertension (7) Microcytic anemia Code(s): D50.9 - IRON DEFICIENCY ANEMIA, UNSPECIFIED Status: Chronic (8) Obesity (BMI 30-39.9) Code(s): E66.9 - OBESITY, UNSPECIFIED Status: Chronic (9) Paroxysmal atrial fibrillation Code(s): I48.0 - PAROXYSMAL ATRIAL FIBRILLATION Status: Chronic - Plan hemostable -: is on zosyn -: may dc iv fluids -: nebs, xarelto -: dc plan in am to snf if stable * . Review of Systems - Medications/Allergies Allergies/Adverse Reactions: Allergies Allergy/AdvReac Type Severity Reaction Status Date / Time levofloxacin [From Levaquin] Allergy Verified 09/13/17 19:09 naproxen Allergy Verified 09/13/17 19:09 NSAIDS (Non-Steroidal Allergy Verified 09/13/17 19:09 Anti-Inflamma warfarin sodium Allergy Verified 09/13/17 19:09 [From Coumadin] Medications: Current Medications Acetaminophen (Tylenol) 650 mg PO Q4H PRN PRN Reason: Headache/Fever or Pain Albuterol/Ipratropium (Duoneb) 3 ml NEB QID-RT [facility] Last Admin: 09/15/17 08:37 Dose: 3 ml Aspirin (Ecotrin) 81 mg PO DAILY [facility] Last Admin: 09/15/17 09:05 Dose: 81 mg Atorvastatin Calcium (Lipitor) 20 mg PO DAILY [facility] Last Admin: 09/15/17 09:05 Dose: 20 mg Diltiazem HCl (Cardizem Cd) 120 mg PO DAILY [facility] Last Admin: 09/15/17 09:03 Dose: 120 mg Divalproex Sodium (Depakote Er) 250 mg PO HS [facility] Last Admin: 09/14/17 20:38 Dose: 250 mg Ezetimibe (Zetia) 10 mg PO DAILY [facility] Last Admin: 09/15/17 09:05 Dose: 10 mg Famotidine (Pepcid) 20 mg PO BID [facility] Furosemide (Lasix) 40 mg PO DAILY [facility] Last Admin: 09/15/17 09:05 Dose: 40 mg Gabapentin (Neurontin) 300 mg PO TID [facility] Last Admin: 09/15/17 09:04 Dose: 300 mg Sodium Chloride (Normal Saline 0.9%) 1,000 mls @ 50 mls/hr IV .Q20H [facility] Last Admin: 09/14/17 17:37 Dose: 1,000 mls Piperacillin Sod/Tazobactam (Sod 3.375 gm/ Sodium Chloride) 100 mls @ 200 mls/ hr IVPB 0500,1100,1700,2300 [facility] Last Admin: 09/15/17 04:43 Dose: 100 mls Memantine (Namenda) 10 mg PO BID [facility] Last Admin: 09/15/17 09:05 Dose: 10 mg Ondansetron HCl (Zofran) 4 mg IVP Q6H PRN PRN Reason: Nausea/Vomiting Oxybutynin Chloride (Ditropan) 5 mg PO DAILY [facility] Last Admin: 09/15/17 09:03 Dose: 5 mg Rivaroxaban (Xarelto) 20 mg PO DAILY [facility] Last Admin: 09/15/17 09:05 Dose: 20 mg Sodium Chloride (Flush - Normal Saline) 10 ml IVF Q12HR [facility] Last Admin: 09/15/17 09:05 Dose: Not Given Sodium Chloride (Flush - Normal Saline) 10 ml IVF PRN PRN PRN Reason: Saline Flush
[2017-09-15] MEDS: Sodium Chloride 0.9% 1,000 ML IV SCH (15:47)
[2017-09-15] MEDS: Famotidine 20 MG TAB PO SCH (20:51)
[2017-09-16] MEDS: Piperacillin/Tazobactam 3.375 GM in Sodium Chloride 0.9% 100 ML IVPB SCH ×4 (05:44→23:25)
[2017-09-16] MEDS: Aspirin 81 mg Enteric Coated Tablet PO SCH (10:03)
[2017-09-16] MEDS: Atorvastatin Calcium 20 MG TAB PO SCH (10:03)
[2017-09-16] MEDS: Famotidine 20 MG TAB PO SCH ×2 (10:04→21:06)
[2017-09-16] MEDS: Oxybutynin 5 MG TAB PO SCH (10:04)
[2017-09-16] MEDS: Ezetimibe 10 MG TAB PO SCH (10:04)
[2017-09-16] MEDS: Gabapentin 300 MG CAP PO SCH ×3 (10:04→21:07)
[2017-09-16] MEDS: Furosemide 40 MG TAB PO SCH (10:08)
[2017-09-16] MEDS: Rivaroxaban 10 MG TAB PO SCH (10:13)
--- NOTE | 2017-09-16 10:52 | RAD ---
PORTABLE CHEST: Date: 09/16/17 PROVIDED CLINICAL HISTORY: Cough. COMPARISON: 09/13/17. FINDINGS: Cardiac silhouette remains enlarged. Left subclavian cardiac pacing device is again seen in similar p osition. The left lung base is poorly evaluated with parenchymal or pleural opacity possible. There i s prominence of the pulmonary vasculature and pulmonary interstitium. Right parahilar air space disea se is suspected. No evidence for pneumothorax. IMPRESSION: Cardiomegaly and findings suggesting congestive failure. Right parahilar air space disease may reflec t pulmonary edema. Pneumonia could also be considered. Follow-up is recommended. POS: [facility]
--- NOTE | 2017-09-16 13:40 | PDOC.PN ---
- Subjective Encounter Start Date: 09/16/17 Encounter Start Time: 13:00 Subjective: breathing better, no sob -: awake, not in distress, not oriented -: responds to verbal questions - Objective Resuscitation Status: Resuscitation Status DNR:Do Not Resuscitate MAR Reviewed: Yes Vital Signs & Weight: Vital Signs (12 hours) Temp Pulse Resp BP Pulse Ox 09/16/17 11:13 88 24 H 09/16/17 10:03 78 09/16/17 07:57 95 09/16/17 07:56 78 20 95 09/16/17 07:20 99.8 F H 82 20 141/64 H 97 Weight Admit Weight 184 lb Weight 184 lb I&O: 09/15/17 09/16/17 09/17/17 06:59 06:59 06:59 Intake Total 1300 2690 Output Total 2 Balance 1298 2690 Result Diagrams: 09/14/17 05:41 09/14/17 05:41 Phys Exam - Physical Examination HEENT: PERRLA, moist MMs Neck: no JVD, supple Respiratory: no wheezing rales+ Cardiovascular: RRR, no significant murmur Gastrointestinal: soft, non-tender, positive bowel sounds Musculoskeletal: no edema, pulses present Neurological: non-focal, moves all 4 limbs Dx/Plan (1) Acute encephalopathy Code(s): G93.40 - ENCEPHALOPATHY, UNSPECIFIED Status: Resolved (2) UTI (urinary tract infection) Status: Acute Qualifiers: Urinary tract infection type: acute cystitis Hematuria presence: without hematuria Qualified Code(s): N30.00 - Acute cystitis without hematuria (3) Alzheimer's dementia Code(s): G30.9 - ALZHEIMER'S DISEASE, UNSPECIFIED Status: Chronic Qualifiers: Alzheimer's disease onset: unspecified onset Dementia behavioral disturbance: without behavioral disturbance Qualified Code(s): G30.9 - Alzheimer's disease, unspecified; F02.80 - Dementia in other diseases classified elsewhere without behavioral disturbance; F02.80 - Dementia in other diseases classified elsewhere without behavioral disturbance; F02.80 - Dementia in other diseases classified elsewhere without behavioral disturbance (4) CAD (coronary artery disease) Code(s): I25.10 - ATHSCL HEART DISEASE OF [place] CORONARY ARTERY W/O ANG PCTRS Status: Chronic Qualifiers: Coronary Disease-Associated Artery/Lesion type: [place] artery [place] vs. transplanted heart: [place] heart Associated angina: without angina Qualified Code(s): I25.10 - Atherosclerotic heart disease of [place] coronary artery without angina pectoris (5) COPD (chronic obstructive pulmonary disease) Status: Chronic Qualifiers: COPD type: unspecified COPD Qualified Code(s): J44.9 - Chronic obstructive pulmonary disease, unspecified (6) HTN (hypertension) Code(s): I10 - ESSENTIAL (PRIMARY) HYPERTENSION Status: Chronic Qualifiers: Hypertension type: essential hypertension Qualified Code(s): I10 - Essential (primary) hypertension (7) Microcytic anemia Code(s): D50.9 - IRON DEFICIENCY ANEMIA, UNSPECIFIED Status: Chronic (8) Obesity (BMI 30-39.9) Code(s): E66.9 - OBESITY, UNSPECIFIED Status: Chronic (9) Paroxysmal atrial fibrillation Code(s): I48.0 - PAROXYSMAL ATRIAL FIBRILLATION Status: Chronic - Plan has vol overload, gentle iv diuresis -: bnp and cxr reviewed -: is on zosyn, will dc on discharge -: tmax of 99 -: dc plan in 24-36hrs to snf * . Review of Systems - Medications/Allergies Allergies/Adverse Reactions: Allergies Allergy/AdvReac Type Severity Reaction Status Date / Time levofloxacin [From Levaquin] Allergy Verified 09/13/17 19:09 naproxen Allergy Verified 09/13/17 19:09 NSAIDS (Non-Steroidal Allergy Verified 09/13/17 19:09 Anti-Inflamma warfarin sodium Allergy Verified 09/13/17 19:09 [From Coumadin] Medications: Current Medications Acetaminophen (Tylenol) 650 mg PO Q4H PRN PRN Reason: Headache/Fever or Pain Albuterol/Ipratropium (Duoneb) 3 ml NEB QID-RT [facility] Last Admin: 09/16/17 11:13 Dose: 3 ml Aspirin (Ecotrin) 81 mg PO DAILY [facility] Last Admin: 09/16/17 10:03 Dose: 81 mg Atorvastatin Calcium (Lipitor) 20 mg PO DAILY [facility] Last Admin: 09/16/17 10:03 Dose: 20 mg Diltiazem HCl (Cardizem Cd) 120 mg PO DAILY [facility] Last Admin: 09/16/17 10:03 Dose: 120 mg Divalproex Sodium (Depakote Er) 250 mg PO HS [facility] Last Admin: 09/15/17 20:53 Dose: 250 mg Ezetimibe (Zetia) 10 mg PO DAILY [facility] Last Admin: 09/16/17 10:04 Dose: 10 mg Famotidine (Pepcid) 20 mg PO BID [facility] Last Admin: 09/16/17 10:04 Dose: 20 mg Furosemide (Lasix) 20 mg SLOW IVP 0600,1400 [facility] Gabapentin (Neurontin) 300 mg PO TID [facility] Last Admin: 09/16/17 10:04 Dose: 300 mg Piperacillin Sod/Tazobactam (Sod 3.375 gm/ Sodium Chloride) 100 mls @ 200 mls/ hr IVPB 0500,1100,1700,2300 [facility] Last Admin: 09/16/17 11:58 Dose: 100 mls Memantine (Namenda) 10 mg PO BID [facility] Last Admin: 09/16/17 10:05 Dose: 10 mg Ondansetron HCl (Zofran) 4 mg IVP Q6H PRN PRN Reason: Nausea/Vomiting Oxybutynin Chloride (Ditropan) 5 mg PO DAILY [facility] Last Admin: 09/16/17 10:04 Dose: 5 mg Rivaroxaban (Xarelto) 20 mg PO DAILY [facility] Last Admin: 09/16/17 10:13 Dose: 20 mg Sodium Chloride (Flush - Normal Saline) 10 ml IVF Q12HR [facility] Last Admin: 09/16/17 10:12 Dose: 10 ml Sodium Chloride (Flush - Normal Saline) 10 ml IVF PRN PRN PRN Reason: Saline Flush
[2017-09-16] MEDS: Furosemide 20 MG/2 ML VIAL SLOW IVP SCH (14:58)
[2017-09-16] MEDS ORDERED: Labetalol HCl 100 MG/20 ML VIAL SLOW IVP PRN (22:34)
[2017-09-17] MEDS: Piperacillin/Tazobactam 3.375 GM in Sodium Chloride 0.9% 100 ML IVPB SCH (05:10)
[2017-09-17] MEDS: Furosemide 20 MG/2 ML VIAL SLOW IVP SCH ×2 (06:26→14:33)
[2017-09-17] MEDS: Atorvastatin Calcium 20 MG TAB PO SCH (08:05)
[2017-09-17] MEDS: Famotidine 20 MG TAB PO SCH ×2 (08:05→21:04)
[2017-09-17] MEDS: Oxybutynin 5 MG TAB PO SCH (08:06)
[2017-09-17] MEDS: Ezetimibe 10 MG TAB PO SCH (08:06)
[2017-09-17] MEDS: Gabapentin 300 MG CAP PO SCH ×3 (08:06→21:06)
[2017-09-17] MEDS: Aspirin 81 mg Enteric Coated Tablet PO SCH (08:06)
[2017-09-17] MEDS: Sulfameth/Trimethoprim DS 800-160mg TAB PO SCH ×2 (08:08→21:06)
[2017-09-17] MEDS: Rivaroxaban 10 MG TAB PO SCH (08:09)
--- NOTE | 2017-09-17 11:17 | PDOC.PN ---
- Subjective Encounter Start Date: 09/17/17 Encounter Start Time: 08:00 Subjective: no sob, is awake -: had her breakfast -: not in distress - Objective Resuscitation Status: Resuscitation Status DNR:Do Not Resuscitate MAR Reviewed: Yes Vital Signs & Weight: Vital Signs (12 hours) Temp Pulse Resp BP Pulse Ox 09/17/17 09:49 85 24 H 93 L 09/17/17 08:06 83 09/17/17 07:10 99.7 F H 85 20 193/70 H 95 09/17/17 05:57 83 24 H 94 L 09/17/17 03:41 98.2 F 84 16 164/95 H 93 L 09/16/17 23:41 98.9 F 79 20 150/66 H 94 L Weight Admit Weight 184 lb Weight 184 lb I&O: 09/16/17 09/17/17 09/18/17 06:59 06:59 06:59 Intake Total 2690 200 Balance 2690 200 Result Diagrams: 09/14/17 05:41 09/14/17 05:41 Phys Exam - Physical Examination HEENT: PERRLA, moist MMs Neck: no JVD, supple Respiratory: no wheezing, no rales Cardiovascular: RRR, no significant murmur Gastrointestinal: soft, non-tender, positive bowel sounds Musculoskeletal: no edema, pulses present Neurological: non-focal, moves all 4 limbs Dx/Plan (1) Acute encephalopathy Code(s): G93.40 - ENCEPHALOPATHY, UNSPECIFIED Status: Resolved (2) UTI (urinary tract infection) Status: Acute Qualifiers: Urinary tract infection type: acute cystitis Hematuria presence: without hematuria Qualified Code(s): N30.00 - Acute cystitis without hematuria (3) Alzheimer's dementia Code(s): G30.9 - ALZHEIMER'S DISEASE, UNSPECIFIED Status: Chronic Qualifiers: Alzheimer's disease onset: unspecified onset Dementia behavioral disturbance: without behavioral disturbance Qualified Code(s): G30.9 - Alzheimer's disease, unspecified; F02.80 - Dementia in other diseases classified elsewhere without behavioral disturbance; F02.80 - Dementia in other diseases classified elsewhere without behavioral disturbance; F02.80 - Dementia in other diseases classified elsewhere without behavioral disturbance (4) CAD (coronary artery disease) Code(s): I25.10 - ATHSCL HEART DISEASE OF [place] CORONARY ARTERY W/O ANG PCTRS Status: Chronic Qualifiers: Coronary Disease-Associated Artery/Lesion type: [place] artery [place] vs. transplanted heart: [place] heart Associated angina: without angina Qualified Code(s): I25.10 - Atherosclerotic heart disease of [place] coronary artery without angina pectoris (5) COPD (chronic obstructive pulmonary disease) Status: Chronic Qualifiers: COPD type: unspecified COPD Qualified Code(s): J44.9 - Chronic obstructive pulmonary disease, unspecified (6) HTN (hypertension) Code(s): I10 - ESSENTIAL (PRIMARY) HYPERTENSION Status: Chronic Qualifiers: Hypertension type: essential hypertension Qualified Code(s): I10 - Essential (primary) hypertension (7) Microcytic anemia Code(s): D50.9 - IRON DEFICIENCY ANEMIA, UNSPECIFIED Status: Chronic (8) Obesity (BMI 30-39.9) Code(s): E66.9 - OBESITY, UNSPECIFIED Status: Chronic (9) Paroxysmal atrial fibrillation Code(s): I48.0 - PAROXYSMAL ATRIAL FIBRILLATION Status: Chronic (10) Acute on chronic diastolic (congestive) heart failure Code(s): I50.33 - ACUTE ON CHRONIC DIASTOLIC (CONGESTIVE) HEART FAILURE Status : Acute - Plan is on lasix till am -: appears to be at her baseline -: is on bactrim for 2 more days -: dc plan in am to snf * . Review of Systems - Medications/Allergies Allergies/Adverse Reactions: Allergies Allergy/AdvReac Type Severity Reaction Status Date / Time levofloxacin [From Levaquin] Allergy Verified 09/13/17 19:09 naproxen Allergy Verified 09/13/17 19:09 NSAIDS (Non-Steroidal Allergy Verified 09/13/17 19:09 Anti-Inflamma warfarin sodium Allergy Verified 09/13/17 19:09 [From Coumadin] Medications: Current Medications Acetaminophen (Tylenol) 650 mg PO Q4H PRN PRN Reason: Headache/Fever or Pain Albuterol/Ipratropium (Duoneb) 3 ml NEB QID-RT [facility] Last Admin: 09/17/17 09:49 Dose: 3 ml Aspirin (Ecotrin) 81 mg PO DAILY [facility] Last Admin: 09/17/17 08:06 Dose: 81 mg Atorvastatin Calcium (Lipitor) 20 mg PO DAILY [facility] Last Admin: 09/17/17 08:05 Dose: 20 mg Diltiazem HCl (Cardizem Cd) 120 mg PO DAILY [facility] Last Admin: 09/17/17 08:06 Dose: 120 mg Divalproex Sodium (Depakote Er) 250 mg PO HS [facility] Last Admin: 09/16/17 21:07 Dose: 250 mg Ezetimibe (Zetia) 10 mg PO DAILY [facility] Last Admin: 09/17/17 08:06 Dose: 10 mg Famotidine (Pepcid) 20 mg PO BID [facility] Last Admin: 09/17/17 08:05 Dose: 20 mg Furosemide (Lasix) 20 mg SLOW IVP 0600,1400 [facility] Last Admin: 09/17/17 06:26 Dose: 20 mg Gabapentin (Neurontin) 300 mg PO TID [facility] Last Admin: 09/17/17 08:06 Dose: 300 mg Labetalol HCl (Normodyne) 5 mg SLOW IVP Q6H PRN PRN Reason: SBP Greater Than 170 Memantine (Namenda) 10 mg PO BID [facility] Last Admin: 09/17/17 08:06 Dose: 10 mg Ondansetron HCl (Zofran) 4 mg IVP Q6H PRN PRN Reason: Nausea/Vomiting Oxybutynin Chloride (Ditropan) 5 mg PO DAILY [facility] Last Admin: 09/17/17 08:06 Dose: 5 mg Rivaroxaban (Xarelto) 20 mg PO DAILY [facility] Last Admin: 09/17/17 08:09 Dose: 20 mg Sodium Chloride (Flush - Normal Saline) 10 ml IVF Q12HR [facility] Last Admin: 09/17/17 08:09 Dose: 10 ml Sodium Chloride (Flush - Normal Saline) 10 ml IVF PRN PRN PRN Reason: Saline Flush Last Admin: 09/17/17 05:11 Dose: 10 ml Trimethoprim/Sulfamethoxazole (Bactrim Ds) 1 tab PO BID [facility] Last Admin: 09/17/17 08:08 Dose: 1 tab
[2017-09-17] MEDS: Acetaminophen 325 MG TAB PO PRN ×2 (12:32→22:38)
[2017-09-18] MEDS: Furosemide 20 MG/2 ML VIAL SLOW IVP SCH (06:29)
[2017-09-18] MEDS: Oxybutynin 5 MG TAB PO SCH (08:37)
[2017-09-18] MEDS: Gabapentin 300 MG CAP PO SCH (08:37)
[2017-09-18] MEDS: Aspirin 81 mg Enteric Coated Tablet PO SCH (08:37)
[2017-09-18] MEDS: Famotidine 20 MG TAB PO SCH (08:37)
[2017-09-18] MEDS: Ezetimibe 10 MG TAB PO SCH (08:37)
[2017-09-18] MEDS: Atorvastatin Calcium 20 MG TAB PO SCH (08:38)
[2017-09-18] MEDS: Sulfameth/Trimethoprim DS 800-160mg TAB PO SCH (08:38)
[2017-09-18] MEDS: Rivaroxaban 10 MG TAB PO SCH (08:40)
[2017-09-18 08:56] VITALS: BP 147/66; TEMP 99.3
--- NOTE | 2017-09-18 10:44 | PDOC.PN ---
- Subjective Encounter Start Date: 09/18/17 Encounter Start Time: 09:00 Subjective: awake, no sob -: has right UE erythema with mild edema over medial arm -: is moving right UE well - Objective Resuscitation Status: Resuscitation Status DNR:Do Not Resuscitate MAR Reviewed: Yes Vital Signs & Weight: Vital Signs (12 hours) Temp Pulse Resp BP Pulse Ox 09/18/17 10:09 81 20 93 L 09/18/17 08:37 89 09/18/17 07:05 99.3 F 71 24 H 147/66 H 94 L 09/18/17 06:08 89 21 H 95 Weight Admit Weight 184 lb Weight 184 lb I&O: 09/17/17 09/18/17 09/19/17 06:59 06:59 06:59 Intake Total 200 720 Balance 200 720 Result Diagrams: 09/14/17 05:41 09/14/17 05:41 Phys Exam - Physical Examination HEENT: PERRLA, moist MMs Neck: no JVD, supple Respiratory: no wheezing, no rales Cardiovascular: RRR, no significant murmur Gastrointestinal: soft, non-tender, positive bowel sounds Musculoskeletal: pulses present right UE erythema, radial and ulnar pulses 2+, rom good Neurological: non-focal, moves all 4 limbs Dx/Plan (1) Acute encephalopathy Code(s): G93.40 - ENCEPHALOPATHY, UNSPECIFIED Status: Resolved (2) UTI (urinary tract infection) Status: Acute Qualifiers: Urinary tract infection type: acute cystitis Hematuria presence: without hematuria Qualified Code(s): N30.00 - Acute cystitis without hematuria (3) Alzheimer's dementia Code(s): G30.9 - ALZHEIMER'S DISEASE, UNSPECIFIED Status: Chronic Qualifiers: Alzheimer's disease onset: unspecified onset Dementia behavioral disturbance: without behavioral disturbance Qualified Code(s): G30.9 - Alzheimer's disease, unspecified; F02.80 - Dementia in other diseases classified elsewhere without behavioral disturbance; F02.80 - Dementia in other diseases classified elsewhere without behavioral disturbance; F02.80 - Dementia in other diseases classified elsewhere without behavioral disturbance (4) CAD (coronary artery disease) Code(s): I25.10 - ATHSCL HEART DISEASE OF [place] CORONARY ARTERY W/O ANG PCTRS Status: Chronic Qualifiers: Coronary Disease-Associated Artery/Lesion type: [place] artery [place] vs. transplanted heart: [place] heart Associated angina: without angina Qualified Code(s): I25.10 - Atherosclerotic heart disease of [place] coronary artery without angina pectoris (5) COPD (chronic obstructive pulmonary disease) Status: Chronic Qualifiers: COPD type: unspecified COPD Qualified Code(s): J44.9 - Chronic obstructive pulmonary disease, unspecified (6) HTN (hypertension) Code(s): I10 - ESSENTIAL (PRIMARY) HYPERTENSION Status: Chronic Qualifiers: Hypertension type: essential hypertension Qualified Code(s): I10 - Essential (primary) hypertension (7) Microcytic anemia Code(s): D50.9 - IRON DEFICIENCY ANEMIA, UNSPECIFIED Status: Chronic (8) Obesity (BMI 30-39.9) Code(s): E66.9 - OBESITY, UNSPECIFIED Status: Chronic (9) Paroxysmal atrial fibrillation Code(s): I48.0 - PAROXYSMAL ATRIAL FIBRILLATION Status: Chronic (10) Acute on chronic diastolic (congestive) heart failure Code(s): I50.33 - ACUTE ON CHRONIC DIASTOLIC (CONGESTIVE) HEART FAILURE Status : Acute - Plan likely has right UE mild lymphangitis with prior mastemctomy -: keflex for 10 days -: dc pt to snf -: to keep right UE elevated * . Review of Systems - Medications/Allergies Allergies/Adverse Reactions: Allergies Allergy/AdvReac Type Severity Reaction Status Date / Time levofloxacin [From Levaquin] Allergy Verified 09/13/17 19:09 naproxen Allergy Verified 09/13/17 19:09 NSAIDS (Non-Steroidal Allergy Verified 09/13/17 19:09 Anti-Inflamma warfarin sodium Allergy Verified 09/13/17 19:09 [From Coumadin] Medications: Current Medications Acetaminophen (Tylenol) 650 mg PO Q4H PRN PRN Reason: Headache/Fever or Pain Last Admin: 09/17/17 22:38 Dose: 650 mg Albuterol/Ipratropium (Duoneb) 3 ml NEB QID-RT [facility] Last Admin: 09/18/17 10:09 Dose: 3 ml Aspirin (Ecotrin) 81 mg PO DAILY [facility] Last Admin: 09/18/17 08:37 Dose: 81 mg Atorvastatin Calcium (Lipitor) 20 mg PO DAILY [facility] Last Admin: 09/18/17 08:38 Dose: 20 mg Diltiazem HCl (Cardizem Cd) 120 mg PO DAILY [facility] Last Admin: 09/18/17 08:37 Dose: 120 mg Divalproex Sodium (Depakote Er) 250 mg PO HS [facility] Last Admin: 09/17/17 21:06 Dose: 250 mg Ezetimibe (Zetia) 10 mg PO DAILY [facility] Last Admin: 09/18/17 08:37 Dose: 10 mg Famotidine (Pepcid) 20 mg PO BID [facility] Last Admin: 09/18/17 08:37 Dose: 20 mg Furosemide (Lasix) 20 mg SLOW IVP 0600,1400 [facility] Last Admin: 09/18/17 06:29 Dose: 20 mg Gabapentin (Neurontin) 300 mg PO TID [facility] Last Admin: 09/18/17 08:37 Dose: 300 mg Labetalol HCl (Normodyne) 5 mg SLOW IVP Q6H PRN PRN Reason: SBP Greater Than 170 Memantine (Namenda) 10 mg PO BID [facility] Last Admin: 09/18/17 08:37 Dose: 10 mg Ondansetron HCl (Zofran) 4 mg IVP Q6H PRN PRN Reason: Nausea/Vomiting Last Admin: 09/17/17 22:38 Dose: 4 mg Oxybutynin Chloride (Ditropan) 5 mg PO DAILY [facility] Last Admin: 09/18/17 08:37 Dose: 5 mg Rivaroxaban (Xarelto) 20 mg PO DAILY [facility] Last Admin: 09/18/17 08:40 Dose: 20 mg Sodium Chloride (Flush - Normal Saline) 10 ml IVF Q12HR [facility] Last Admin: 09/18/17 08:38 Dose: 10 ml Sodium Chloride (Flush - Normal Saline) 10 ml IVF PRN PRN PRN Reason: Saline Flush Last Admin: 09/17/17 05:11 Dose: 10 ml Trimethoprim/Sulfamethoxazole (Bactrim Ds) 1 tab PO BID [facility] Last Admin: 09/18/17 08:38 Dose: 1 tab
[2017-09-18] MEDS: Acetaminophen 325 MG TAB PO PRN (11:55)
--- NOTE | 2017-09-18 13:59 | DIS ---
DATE OF ADMISSION: 09/13/2017 DATE OF DISCHARGE: 09/18/2017 DISCHARGE DISPOSITION: To retirement. PRIMARY DISCHARGE DIAGNOSES: Acute encephalopathy with urinary tract infection , resolved; dementia, coronary artery disease, failure to thrive, congestive heart failure with diastolic dysfunction with exacerbation, resolved; paroxysmal atrial fibrillation, obesity, chronic anemia, hypertension, chronic obstructive pulmonary disease, poor functional status, possible right upper extremity lymphangitis, resolving. PROCEDURES DONE DURING HOSPITALIZATION: CT brain done showed no acute intracranial process. CT of the abdomen and pelvis, moderate pericardial effusion with pulmonary edema. Urine culture grew Klebsiella and Proteus sensitive to Bactrim. Blood cultures x2 no growth. H&H 12 and 38, platelet count 120, MCV is 87. INR on the was 2.3. Discharge BUN and creatinine is 21 and 1.20. BNP was 851. DISCHARGE MEDICATIONS: Keflex 500 mg p.o. three times daily for 10 days for right upper extremity possible lymphangitis with prior history of mastectomy; Lipitor 20 mg daily, aspirin 81 mg p.o. daily, Cardizem-CD 120 mg p.o. daily, Depakote extended release 500 mg p.o. at bedtime, Zetia 10 mg daily, Pepcid 20 mg twice daily, Lasix 40 mg daily, Neurontin 300 mg p.o. 3 times daily, Namenda 10 mg p.o. twice daily, Ditropan 5 mg daily, potassium chloride 20 mEq p.o. daily, Xarelto 20 mg p.o. daily, Florastor 250 mg p.o. daily, Ultram p.r.n. for pain, trazodone 100 mg p.o. at bedtime. ALLERGIES: WARFARIN, LEVOFLOXACIN and NSAIDs. INPATIENT CONSULTS: Dr. Corbin for Infectious Disease. BRIEF COURSE DURING HOSPITALIZATION: Patient initially was sent from retirement for altered mental state. An initial urinalysis was suspicious for UTI. The patient has had shortness of breath and initial imaging and clinical studies were also consistent with acute on chronic congestive heart failure exacerbation with diastolic dysfunction. The patient was placed on IV antibiotics and was switched over to Bactrim based on urine cultures. She was also gently diuresed. The patient's cognitive status has come back to her baseline. Prior discharge this morning, the patient developed right upper extremity lymphangitis what appears to be lymphangitis with prior history of mastectomy on the right side. She is on Xarelto for chronic atrial fibrillation. She is advised to continue Keflex three times daily with elevation of right upper extremity. She is hemodynamically stable and was closely monitored over extended period of time during this hospitalization. She is hemodynamically stable and will be shortly discharged back to retirement. Please see face to face documentation on [facility] for the day of discharge. A total of 35 minutes was spent on discharge plan. RUBEN
== END 2017-09-18 13:29 | DRG 871 ==
LOC: ERS 06:25 → ONC 09:14
PROVIDERS: ADMIT Internal Medicine; ATTEND Internal Medicine
DX: A41.9 Sepsis, unspecified organism (principal); G93.49 Other encephalopathy; I50.33 Acute on chronic diastolic (congestive) heart failure; L89.152 Pressure ulcer of sacral region, stage 2; I13.0 Hypertensive heart and chronic kidney disease with heart failure and stage 1 through stage 4 chronic kidney disease, or unspecified chronic kidney disease; I48.0 Paroxysmal atrial fibrillation; D64.9 Anemia, unspecified; L89.619 Pressure ulcer of right heel, unspecified stage; N30.00 Acute cystitis without hematuria; G30.9 Alzheimer's disease, unspecified; F02.80 Dementia in other diseases classified elsewhere, unspecified severity, without behavioral disturbance, psychotic disturbance, mood disturbance, and anxiety; N18.3 Chronic kidney disease, stage 3 (moderate); I89.1 Lymphangitis; I25.10 Atherosclerotic heart disease of native coronary artery without angina pectoris; R62.7 Adult failure to thrive; J44.9 Chronic obstructive pulmonary disease, unspecified; E66.9 Obesity, unspecified; Z79.01 Long term (current) use of anticoagulants; I48.2 Chronic atrial fibrillation; I97.2 Postmastectomy lymphedema syndrome; D50.9 Iron deficiency anemia, unspecified; Z68.33 Body mass index [BMI] 33.0-33.9, adult
CPT/HCPCS: 36415; 51701; 70450; 71045; 74176; 80048; 80053; 81003; 81015; 82553; 83605; 83690; 83735; 83880; 84145; 84484; 85025; 85610; 85730; 87040; 87077; 87086; 87186; 87804; 93005; 94640; 96361; 96365; 96366; 96368; A4216; A4353; G8996-GN-CI; G8997-GN-CI; J1940; J2405; J2543; J3370; J7050; J7620

== ENCOUNTER 2017-10-31 10:49 | Emergency (ER) | payer MEDICARE, MEDICAID ==
--- NOTE | 2017-10-31 12:11 | CT ---
CT BRAIN WITHOUT CONTRAST: Comparison: None. History: Fall from standing with hematuria to the head. Patient is on blood thinners. Technique: Multiple contiguous axial images were obtained in a CT of the brain without contrast. FINDINGS: There are scattered hypodensities in the subcortical and periventricular white matter, likely seconda ry to small vessel ischemic disease. There is no evidence of hydrocephalus, intracranial hemorrhage, or extraaxial fluid collections. Soft tissue swelling is seen in the left forehead and periorbital regions. The visualized paranasal s inuses and mastoid air cells are well aerated. IMPRESSION: Small vessel ischemic disease without acute intracranial abnormality. POS: [facility]
[2017-10-31 12:41] LABS: #Eosinphils 0.2 thou/uL (0.0-0.7); #Lymphocytes 1.1 thou/uL (1.20-3.40); #Monocytes 0.5 thou/uL (0.11-0.59); #Neutrophils 3.1 thou/uL (1.40-6.50); %Basophils 0.2 % (0.0-1.0); %Eosinophils 3.6 % (0.0-10.0); %Lymphocytes 22.6 % (21.0-51.0); %Monocytes 9.4 % (0.0-10.0); %Neutrophils 64.2 % (42.0-75.0); Hemoglobin 12.6 g/dL (12.0-16.0); Mean Corpuscular HGB CONC 33.8 g/dL (32.0-36.0); Mean Corpuscular Hemoglobin 29.5 pg (27.0-31.0); Mean Corpuscular Volume 87.4 fl (81.0-99.0); Mean Platelet Volume 9.4 fL (7.4-10.4); Platelet Count 141 thou/uL (130-400); RBC Distribution Width 15.9 % (11.5-14.5); Red Blood Cell (RBC) Count 4.28 mill/uL (4.20-5.40); White Blood Cell (WBC) Count 4.8 thou/uL (4.8-10.8)
[2017-10-31 12:52] LABS: INR-International Normal Ratio 2.3; PTT 44.3 SEC (22.9-36.1); Prothrombin Time 26.4 SEC (12.0-14.7)
[2017-10-31 13:00] LABS: ALT (SGPT) 7 U/L (8-55); AST (SGOT) 14 U/L (5-34); Albumin 3.3 g/dL (3.4-4.8); Alkaline Phosphatase 106 U/L (40-150); Anion Gap 13 mmol/L (10-20); BUN (Urea Nitrogen) 11 mg/dL (9.8-20.1); Bilirubin, Total 0.6 mg/dL (0.2-1.2); Calc. Creatinine Clearance 0 mL/min (70-130); Calcium 8.6 mg/dL (7.8-10.44); Carbon Dioxide 28 mmol/L (23-31); Chloride 103 mmol/L (98-107); Estimated GFR-MDRD 64; Globulin 2.3 g/dL (2.4-3.5); Glucose 119 mg/dL (83-110); Potassium 4.9 mmol/L (3.5-5.1); Protein, Total 5.6 g/dL (6.0-8.3); Sodium 139 mmol/L (136-145)
== END 2017-10-31 14:58 | disposition home or self-care (01) ==
LOC: ERS 10:49
DX: S00.83XA Contusion of other part of head, initial encounter (principal); I10 Essential (primary) hypertension; J44.9 Chronic obstructive pulmonary disease, unspecified; I25.10 Atherosclerotic heart disease of native coronary artery without angina pectoris; I25.2 Old myocardial infarction; I48.91 Unspecified atrial fibrillation; F41.9 Anxiety disorder, unspecified; F32.9 Major depressive disorder, single episode, unspecified; Z79.899 Other long term (current) drug therapy; Z79.82 Long term (current) use of aspirin; Z79.01 Long term (current) use of anticoagulants; W19.XXXA Unspecified fall, initial encounter
CPT/HCPCS: 36415; 70450; 80053; 85025; 85610; 85730; 93005

== ENCOUNTER 2018-05-11 12:27 | Observation (INO) | payer MEDICARE, MEDICAID ==
[2018-05-11 12:56] LABS: #Lymphocytes 1.1 thou/uL (1.20-3.40); #Monocytes 1.2 thou/uL (0.11-0.59); #Neutrophils 11.1 thou/uL (1.40-6.50); %Eosinophils 0.1 % (0.0-10.0); %Lymphocytes 8.2 % (21.0-51.0); %Monocytes 8.7 % (0.0-10.0); Hemoglobin 12.7 g/dL (12.0-16.0); Mean Corpuscular HGB CONC 31.8 g/dL (32.0-36.0); Mean Corpuscular Hemoglobin 29.6 pg (27.0-31.0); Mean Corpuscular Volume 92.9 fL (78.0-98.0); Mean Platelet Volume 9.9 fL (7.4-10.4); Platelet Count 192 thou/uL (130-400); RBC Distribution Width 12.8 % (11.5-14.5); Red Blood Cell (RBC) Count 4.31 mill/uL (4.20-5.40); White Blood Cell (WBC) Count 13.4 thou/uL (4.8-10.8)
--- NOTE | 2018-05-11 13:09 | RAD ---
AP VIEW CHEST: Date: 05/11/18 HISTORY: Altered mental status. FINDINGS: Comparison made to previous exam from 09/16/17. AP view of chest demonstrates a dual lead intracardiac pacing device. Cardiomegaly is seen. Pulmonary vascular congestion is seen. No evidence of effusions, pneumonia, or pneumothorax seen. IMPRESSION: Unremarkable AP view chest. POS: [facility]
[2018-05-11 13:10] LABS: Clarity Turbid (Clear); Leukocyte Moderate (Negative)
[2018-05-11 13:11] LABS: Bilirubin Negative (Negative); Blood, Urine Large (Negative); Glucose, Urine (Dipstick) Negative (Negative); Nitrite Positive (Negative); Protein, Urine (Dipstick) 100 mg/dL (Neg-Trace); Urobilinogen 0.2 mg/dL (0.2-1.0)
[2018-05-11 13:14] LABS: Bacteria/HPF 4+ HPF (None Seen); Hyaline Casts/LPF 0-3 HYALINE CAST LPF (0-3 Hyaline); Squamous Epithelial 0-3 HPF (0-3)
[2018-05-11 13:15] LABS: Base Excess-Venous 5.5 mmol/L (0 (+/- 2.5)); Bicarbonate (HCO3v) 29.8 mmol/L (1.0-85.0); CO2 Tension (PvCO2) 41.4 mmHg (41.0-51.0); Calcium, Ionized 1.15 mmol/L (1.12-1.32); Hemoglobin - Calc 13.7 g/dL (12.0-18.0); O2 Tension (PvO2) 86.5 mmHg (35.0-45.0); Potassium 4.2 mmol/L (3.4-4.7); T. Carbon Dioxide 31.1 mmol/L (1.0-85.0); pH (Venous) 7.466 (7.35-7.45); vO2 Saturation-calc 97.1 % (94-98)
[2018-05-11 13:28] LABS: ALT (SGPT) 160 U/L (8-55); AST (SGOT) 210 U/L (5-34); Albumin 3.5 g/dL (3.4-4.8); Alkaline Phosphatase 97 U/L (40-150); Anion Gap 14 mmol/L (10-20); BUN (Urea Nitrogen) 30 mg/dL (9.8-20.1); Bilirubin, Total 0.7 mg/dL (0.2-1.2); Calc. Creatinine Clearance 0 mL/min (70-130); Calcium 9.9 mg/dL (7.8-10.44); Carbon Dioxide 28 mmol/L (23-31); Chloride 109 mmol/L (98-107); Estimated GFR-MDRD 43; Globulin 3.2 g/dL (2.4-3.5); Glucose 212 mg/dL (83-110); Potassium 4.4 mmol/L (3.5-5.1); Protein, Total 6.7 g/dL (6.0-8.3); Sodium 147 mmol/L (136-145)
--- NOTE | 2018-05-11 13:53 | CT ---
CT BRAIN WITHOUT CONTRAST: Date: 05/11/18 HISTORY: Altered mental status. FINDINGS: Comparison made with exam of 10/31/17. Changes of chronic small vessel ischemic disease are again seen. The ventricular size is stable and t he basilar cisterns are patent. No evidence of acute infarct, hemorrhage, midline shift, or abnormal extra-axial fluid collections are noted. The bony calvarium is intact. The visualized paranasal sinus es are well aerated. IMPRESSION: No CT evidence of acute intracranial process. POS: [facility]
[2018-05-11] MEDS ORDERED: cefTRIAXone\\ROCEPHIN 1 GM VIAL ONE (14:23)
[2018-05-11] MEDS ORDERED: Sodium Chloride 0.9% 100 ML ONE (14:23)
[2018-05-11] MEDS ORDERED: Acetaminophen 650 MG Suppository PR PRN (19:07)
[2018-05-11] MEDS ORDERED: Ondansetron ODT 4 MG TAB PO PRN (19:07)
[2018-05-11] MEDS ORDERED: Dextrose 50% Abboject 50 ML SYRINGE SLOW IVP PRN (19:07)
[2018-05-11] MEDS ORDERED: Insulin Regular 300 UNITS/3 ML VIAL SC PRN (19:07)
[2018-05-11] MEDS ORDERED: Ondansetron PF 4 MG/2 ML Vial IVP PRN (19:07)
[2018-05-11] MEDS ORDERED: Dextrose 5% in Water 1,000 ML IV PRN (19:07)
[2018-05-11] MEDS ORDERED: cefTRIAXone\\ROCEPHIN 1 GM in Sodium Chloride 0.9% 100 ML IVPB SCH (20:00)
[2018-05-11 23:36] VITALS: BMI 24.8
[2018-05-12] MEDS ORDERED: Sodium Chloride 0.9% 1,000 ML IV SCH (01:45)
[2018-05-12] MEDS ORDERED: Ibuprofen 600 MG TAB PO PRN (01:52)
[2018-05-12 04:13] LABS: #Lymphocytes 1.5 thou/uL (1.20-3.40); #Monocytes 0.8 thou/uL (0.11-0.59); #Neutrophils 8.1 thou/uL (1.40-6.50); %Basophils 0.2 % (0.0-1.0); %Eosinophils 0.3 % (0.0-10.0); %Lymphocytes 13.9 % (21.0-51.0); %Monocytes 7.9 % (0.0-10.0); %Neutrophils 77.8 % (42.0-75.0); Hemoglobin 12.3 g/dL (12.0-16.0); Mean Corpuscular HGB CONC 31.6 g/dL (32.0-36.0); Mean Corpuscular Hemoglobin 29.5 pg (27.0-31.0); Mean Corpuscular Volume 93.5 fL (78.0-98.0); Mean Platelet Volume 9.8 fL (7.4-10.4); Platelet Count 194 thou/uL (130-400); RBC Distribution Width 12.9 % (11.5-14.5); Red Blood Cell (RBC) Count 4.16 mill/uL (4.20-5.40); White Blood Cell (WBC) Count 10.5 thou/uL (4.8-10.8)
[2018-05-12 04:35] LABS: Anion Gap 16 mmol/L (10-20); BUN (Urea Nitrogen) 35 mg/dL (9.8-20.1); Calc. Creatinine Clearance 40 mL/min (70-130); Calcium 9.5 mg/dL (7.8-10.44); Carbon Dioxide 29 mmol/L (23-31); Chloride 110 mmol/L (98-107); Estimated GFR-MDRD 42; Glucose 154 mg/dL (83-110); Potassium 4.4 mmol/L (3.5-5.1); Sodium 151 mmol/L (136-145)
[2018-05-12 07:13] VITALS: BP 148/60; TEMP 98.3
--- NOTE | 2018-05-12 13:23 | SS ---
DATE OF ADMISSION: 05/11/2018 DATE OF DISCHARGE: 05/12/2018 PRIMARY CARE PHYSICIAN: Rin Mccloud M.D. DISCHARGE DIAGNOSES: 1. Acute urinary tract infection without hematuria. 2. Metabolic encephalopathy. 3. Diabetes mellitus, type 2. 4. Hypertension. CONSULTATIONS: None. PROCEDURES: None. HISTORY OF PRESENT ILLNESS: Ms. Bajwa is a 78-year-old female care home resident, who became alt ered from her baseline. She was sent to the emergency department for evaluation where she was found to have elevated white blood cell count around 13,000 and signs of UTI. So we were called for admiss ion. HOSPITAL COURSE: The patient was seen and examined by me in the emergency department and subsequentl y started on Rocephin. She was placed in observation overnight. Today, she is much more awake and alert and following commands. This is in line with her baseline me ntal status, she was transitioned to oral cefuroxime and discharged back to the care home. PAST MEDICAL HISTORY: 1. Hypertension. 2. Chronic obstructive pulmonary disease. 3. Coronary artery disease with history of [place]. 4. Atrial fibrillation, chronic. 5. History of breast cancer. 6. Right extremity lymphedema. PAST SURGICAL HISTORY: 1. Bilateral TKA. 2. Cholecystectomy. 3. Hysterectomy. 4. Mastectomy. 5. Pacemaker placement. HOME MEDICATIONS: Have been reviewed. Please see the nurse's intake sheet. ALLERGIES: 1. CIPROFLOXACIN and LEVOFLOXACIN. 2. COUMADIN. 3. NAPROXEN. 4. NSAIDs in general. 5. WARFARIN. FAMILY HISTORY: Negative for clotting or bleeding disorder. No immune dysfunction. SOCIAL HISTORY: Lives in [facility]. Negative habits x3. REVIEW OF SYSTEMS: Not obtainable due to obtundation on admission. PHYSICAL EXAMINATION: VITAL SIGNS: Temperature on admission 98.8, pulse 74, blood pressure 137/95, respiratory rate 16, sa tting 96% on room air. GENERAL: She was sleeping, but arousable. She was in no acute distress. She is severely obese and is somnolent. HEENT: Normocephalic, atraumatic. Pupils equal, round, reactive to light bilaterally. Mucous membr anes moist. No visible lesion. No thrush. NECK: Supple. No lymphadenopathy, JVD, or thyromegaly. Normal carotid upstroke. There are no brui ts. LUNGS: Clear. No wheezes, no rales, no rhonchi. Good air movement bilaterally. Good bilateral [address] st excursion. CARDIOVASCULAR: Irregularly irregular. Normal cardia. Normal S1, S2. No S3, S4. ABDOMEN: Soft, nontender, nondistended. She is obese. I cannot palpate internal organs. EXTREMITIES: No cyanosis or clubbing, 1+ lower extremity edema to the ankles. SKIN: Warm, moist, and well perfused. There is no rash or lesions. NEUROLOGIC: Not testable. LABORATORY DATA: CBC on admission showed a white count of 13.4, hemoglobin 12.7, hematocrit 40.0, pl atelet count is 192,000. She had a slight granulocytosis. Today, white blood cell count down to 10. 5. ABG was normal. CMP on discharge shows sodium slightly elevated at 151, potassium 4.4, chloride 110, bicarbonate 29, BUN 35, creatinine 1.23, was at her baseline. Sugars have been in the 120s to 150s. Urinalysis show ed signs of UTI. MICROBIOLOGIC DATA: Urine culture obtained during admission is growing presumptive E. coli with susc eptibility still pending. Blood culture negative to date. ASSESSMENT AND PLAN: Acute urinary tract infection. The patient will be transitioned to p.o. antibi otics at discharge. DISCHARGE PHYSICAL EXAMINATION: The patient was seen and examined on the date of discharge. Discharge plan and disposition discussed with the patient face to face at bedside. I discussed with case management. DISCHARGE MEDICATIONS: Resuming all home medications. Adding cefuroxime 250 mg p.o. b.i.d. for 7 da ys. DISCHARGE ACTIVITY: As tolerated. DISCHARGE DIET: Heart healthy diabetic diet ordered. FOLLOWUP APPOINTMENTS: With primary care physician within a week.
[2018-05-12] MEDS ORDERED: cefTRIAXone\\ROCEPHIN 1 GM in Sodium Chloride 0.9% 100 ML IVPB SCH (20:00)
== END 2018-05-12 15:12 ==
LOC: ERS 12:27 → T4-A 18:48
PROVIDERS: ADMIT Internal Medicine Infectious Disease; ATTEND Internal Medicine Infectious Disease
DX: N39.0 Urinary tract infection, site not specified (principal); G93.41 Metabolic encephalopathy; E11.9 Type 2 diabetes mellitus without complications; I10 Essential (primary) hypertension; J44.9 Chronic obstructive pulmonary disease, unspecified; I25.10 Atherosclerotic heart disease of native coronary artery without angina pectoris; I48.2 Chronic atrial fibrillation; Z88.5 Allergy status to narcotic agent; Z88.1 Allergy status to other antibiotic agents
CPT/HCPCS: 51701; 70450; 71045; 80048; 82140; 82330; 82435; 82803; 82962 ×2; 83605; 84132; 84295; 85014; 85025; 87040; 87077; 87086; 87186; 93005; 94640 ×2; 96365; 97139; 99285; G0378 ×2; G8981; G8982; G8983; 36415; 36416; 80053; 81003; 81015; 84443; A4353; J0696; J1815; J7050; J7620